=== PATIENT | female | born 1985 | race Caucasian/White ===

== ENCOUNTER 2017-06-16 16:40 | Emergency (ER) | payer BC ==
[2017-06-16] MEDS ORDERED: SODIUM CHLORIDE 0.9% 500 ML IV STA (16:54)
[2017-06-16 17:21] LABS: Basophils # (A) 0.1 k/uL (0-0.2); Basophils % (A) 0 %; Eosinophils # (A) 0.2 k/uL (0-0.7); Eosinophils % (A) 2 %; HCT 32.3 % (34.0-46.0); HDW 3.23; HGB 11.3 gm/dL (11.4-16.0); Large Platelets Flag Moderate; Luc # (Auto) 0.37; Luc % (Auto) 3; Lymphocytes # (A) 2.8 k/uL (1.0-4.8); Lymphocytes % (A) 21 %; MCH 29.2 pg (25.0-35.0); MCV 83.3 fL (80.0-100.0); Mean Platelet Volume 10.9; Monocytes # (A) 0.8 k/uL (0-1.0); Monocytes % (A) 6 %; Neutrophils # (A) 9.2 k/uL (1.3-7.7); Neutrophils % (A) 69 %; RBC 3.88 m/uL (3.80-5.40); RDW 14.1 % (11.5-15.5); WBC 13.4 k/uL (3.8-10.6); WBC (Perox) 13.92
[2017-06-16 17:28] LABS: ALT 41 U/L (9-52); AST 25 U/L (14-36); Alkaline Phosphatase 65 U/L (38-126); Amylase 59 U/L (30-110); Anion Gap 8 mmol/L; Blood Urea Nitrogen 13 mg/dL (7-17); Carbon Dioxide 21 mmol/L (22-30); Chloride 105 mmol/L (98-107); Glucose 82 mg/dL (74-99); Non-African American GFR(MDRD) >60 (>60 ml/min/1.73 sqM); Potassium 3.7 mmol/L (3.5-5.1); Sodium 134 mmol/L (137-145); Total Bilirubin 0.3 mg/dL (0.2-1.3); Total Protein 6.7 g/dL (6.3-8.2)
[2017-06-16 17:34] VITALS: RESP 18
--- NOTE | 2017-06-16 18:10 | US ---
EXAMINATION TYPE: US OB >= 14 wk fetus DATE OF EXAM: 06/16/2017 COMPARISON: None CLINICAL HISTORY: Pelvic Pain TECHNIQUE: Transabdominal (TA) GESTATIONAL AGE / DATING Physician Established: (19 weeks/2 days) EDC: 11/08/2017 Dates by LMP: (19 weeks/2 days) EDC: 11/08/2017 Dates by First Scan: No previous at this facility Dates by Current Scan: (19 weeks/4 days) EDC: 11/06/2017 SURVEY IUP: Single PLACENTA: Posterior PREVIA: No Previa LAURA: 18.7 cm Normal CERVICAL LENGTH (transabdominal: norm > 3.0cm): 3.8 cm BIOMETRY PRESENTATION: Breech LIE: Longitudinal BPD: 4.69 cm 20 weeks / 1 days HC: 17.0 cm 19 weeks / 5 days AC: 15.16 cm 20 weeks / 3 days FL: 2.9 cm 18 weeks / 6 days ESTIMATED WEIGHT IN GRAMS: 308.78 grams ESTIMATED WEIGHT IN LBS/OZS: 0 lbs. 11 oz. WEIGHT PERCENTAGE BASED ON ESTABLISHED DATES: 71.2% HC/AC: 1.12 Normal FL/AC: 19.11 Normal HEART RATE: 132 bpm RHYTHM: Normal Viable IUP, measurements congruent with dates. IMPRESSION: The ultrasound gestational age is 19 weeks 4 days. I see no complicating process.
--- NOTE | 2017-06-16 18:20 | ED ---
General Adult HPI - General Chief complaint: OB/Uterine Contractions Stated complaint: abd pain, Time Seen by Provider: 06/16/17 16:41 Source: patient Mode of arrival: ambulatory Limitations: no limitations - History of Present Illness Initial comments: 32-year-old female patient presents to emergency department today for complaints of lower abdominal pressure. Patient is 19 weeks , and states that the pain/pressure started today around 11 AM. Patient states that the pain is intermittent, but when it comes on it lasts for a while and feels intense. Patient states she has been urinating more frequently, however she denies any dysuria, or hematuria. She denies any vaginal bleeding or discharge. She states she has been getting dizzy occasionally. She states that he is having some ankle swelling and elevated blood pressures however her SOFTWARE SUPPORT ENGINEER is aware and is monitoring her for this. She denies any fever, chills, rash, headache, chest pain, shortness of breath, nausea, vomiting, constipation , or diarrhea. She states she has one sexual partner and is not concerned for STDs. Patient is . She did have a ultrasound last week which showed no or maternal abnormalities. - Related Data Home Medications Medication Instructions Recorded Confirmed Acetaminophen [Tylenol] 325 mg PO Q4H PRN 03/08/16 03/11/16 Biotin 10,000 mcg PO QAM 03/08/16 03/11/16 Omeprazole [PriLOSEC] 10 mg PO AC-BRKFST 03/08/16 03/11/16 Previous Rx's Medication Instructions Recorded Nitrofurantoin Monohyd/M-Cryst 100 mg PO Q12HR #14 cap 06/16/17 [Macrobid] Allergies Allergy/AdvReac Type Severity Reaction Status Date / Time cod fish Allergy Rash/Hives Uncoded 03/08/16 14:27 Review of Systems ROS Statement: Those systems with pertinent positive or pertinent negative responses have been documented in the HPI. ROS Other: All systems not noted in ROS Statement are negative. Past Medical History Past Medical History: GERD/Reflux Additional Past Medical History / Comment(s): GIB, stomach aches History of Any Multi-Drug Resistant Organisms: None Reported Past Surgical History: Appendectomy, Orthopedic Surgery Additional Past Surgical History / Comment(s): Sx: right simpson laser sx d/t torn ligament Past Anesthesia/Blood Transfusion Reactions: Postoperative Nausea & Vomiting ( PONV) Past Psychological History: Anxiety Smoking Status: Never smoker Past Alcohol Use History: None Reported Past Drug Use History: None Reported - Past Family History Mother Family Medical History: COPD Additional Family Medical History / Comment(s): emphysema, passed from Father Family Medical History: Chest Pain / Angina, Coronary Artery Disease (CAD), Deep Vein Thrombosis (DVT) Additional Family Medical History / Comment(s): DVT in legs General Exam Limitations: no limitations General appearance: alert, in no apparent distress ENT exam: Present: normal exam, normal oropharynx, mucous membranes moist Neck exam: Present: normal inspection. Absent: tenderness, meningismus, lymphadenopathy Respiratory exam: Present: normal lung sounds bilaterally. Absent: respiratory distress, wheezes, rales, rhonchi, stridor Cardiovascular Exam: Present: regular rate, normal rhythm, normal heart sounds. Absent: systolic murmur, diastolic murmur, rubs, gallop, clicks GI/Abdominal exam: Present: soft, tenderness (Tenderness over the suprapubic and central lower abdominal region.), normal bowel sounds, other (Gravid abdomen.). Absent: distended, guarding, rebound, rigid Extremities exam: Present: normal inspection, full ROM, normal capillary refill , other (+1 pitting edema noted to the bilateral ankles. Pedal pulses, and equal bilaterally. No erythema noted.). Absent: tenderness, pedal edema, joint swelling, calf tenderness Back exam: Present: normal inspection. Absent: CVA tenderness (R), CVA tenderness (L) Neurological exam: Present: alert, oriented X3, CN II-XII intact Psychiatric exam: Present: normal affect, normal mood Skin exam: Present: warm, dry, intact, normal color. Absent: rash Course Vital Signs 06/16/17 06/16/17 06/16/17 16:45 17:33 18:33 Temperature 98.1 F 98 F Pulse Rate 89 79 74 Respiratory 20 18 18 Rate Blood Pressure 153/79 158/78 110/67 O2 Sat by Pulse 98 98 98 Oximetry EKG Findings - EKG Comments: EKG Findings:: EKG obtained at 1707 shows normal sinus rhythm with a ventricular rate of 78, IA interval 1:30, QRS duration 82, QT 372, QTC 424. No evidence of ST elevation or depression. Medical Decision Making - Medical Decision Making 32-year-old female patient presented to emergency department today for complaints of lower abdominal pain and pressure. Urinalysis was performed as an outpatient and did show moderate bacteria, small leukocyte esterase, and mucus present. Labs were reviewed and did show white blood cell count of 13.4. ultrasound was performed and did show a single viable intrauterine measuring 19 weeks 4 days. heart rate was 132. No evidence of previa or abruption. Patient will be discharged home with instructions to monitor and record blood pressures. She'll be given a prescription for Macrobid for treatment of UTI, urine culture was sent. Patient instructed to follow up as soon as possible with her SOFTWARE SUPPORT ENGINEER for recheck. Instructed to follow -up with her primary care physician for recheck in 1-2 days. Instructed to return here immediately for any new, worsening, or concerning symptoms. - Lab Data Result diagrams: 06/16/17 17:05 06/16/17 17:05 Lab Results 06/16/17 06/16/17 Range/Units 17:05 17:05 WBC 13.4 H (3.8-10.6) k/uL RBC 3.88 (3.80-5.40) m/uL Hgb 11.3 L (11.4-16.0) gm/dL Hct 32.3 L (34.0-46.0) % MCV 83.3 (80.0-100.0) fL MCH 29.2 (25.0-35.0) pg MCHC 35.0 (31.0-37.0) g/dL RDW 14.1 (11.5-15.5) % Plt Count 178 (150-450) k/uL Neutrophils % 69 % Lymphocytes % 21 % Monocytes % 6 % Eosinophils % 2 % Basophils % 0 % Neutrophils # 9.2 H (1.3-7.7) k/uL Lymphocytes # 2.8 (1.0-4.8) k/uL Monocytes # 0.8 (0-1.0) k/uL Eosinophils # 0.2 (0-0.7) k/uL Basophils # 0.1 (0-0.2) k/uL Sodium 134 L (137-145) mmol/L Potassium 3.7 (3.5-5.1) mmol/L Chloride 105 (98-107) mmol/L Carbon Dioxide 21 L (22-30) mmol/L Anion Gap 8 mmol/L BUN 13 (7-17) mg/dL Creatinine 0.72 (0.52-1.04) mg/dL Est GFR (MDRD) Af Amer >60 (>60 ml/min/1.73 sqM) Est GFR (MDRD) Non-Af >60 (>60 ml/min/1.73 sqM) Glucose 82 (74-99) mg/dL Calcium 10.0 (8.4-10.2) mg/dL Total Bilirubin 0.3 (0.2-1.3) mg/dL AST 25 (14-36) U/L ALT 41 (9-52) U/L Alkaline Phosphatase 65 (38-126) U/L Total Protein 6.7 (6.3-8.2) g/dL Albumin 3.6 (3.5-5.0) g/dL Amylase 59 (30-110) U/L Lipase 135 (23-300) U/L - Radiology Data Radiology results: report reviewed, image reviewed ultrasound was performed and showed viable IUP, measurements congruent with dates. Impression by Dr. Corrales shows the ultrasound gestational age is 19 weeks 4 days. I see no compensating process. Disposition Clinical Impression: Abdominal pain during , Urinary tract infection Disposition: HOME SELF-CARE Condition: Good Instructions: Abdominal Pain in (ED), Urinary Tract Infection in (ED) Additional Instructions: Increase fluids. Take antibiotic prescription and full. Follow up with SOFTWARE SUPPORT ENGINEER for recheck as soon as possible. Return immediately for any new, worsening, or concerning symptoms. Prescriptions: Nitrofurantoin Monohyd/M-Cryst [Macrobid] 100 mg PO Q12HR #14 cap Referrals: Shyla Zhou DO [Primary Care Provider] - 1-2 days Time of Disposition: 18:20
[2017-06-16 18:34] VITALS: BP 110/67; PULSE 74; TEMP 98
== END 2017-06-16 18:33 | disposition home or self-care (01) ==
LOC: EC 16:40
DX: O23.42 Unspecified infection of urinary tract in pregnancy, second trimester (principal); O99.89 Other specified diseases and conditions complicating pregnancy, childbirth and the puerperium; R10.30 Lower abdominal pain, unspecified; O99.612 Diseases of the digestive system complicating pregnancy, second trimester; K21.9 Gastro-esophageal reflux disease without esophagitis; Z3A.19 19 weeks gestation of pregnancy; Z79.899 Other long term (current) drug therapy; Z91.013 Allergy to seafood
CPT/HCPCS: 36415; 76805; 80053; 82150; 83690; 85025; 93005; 99284

== ENCOUNTER → 2017-06-16 | Outpatient (CLI) | payer BC ==
[2017-06-16 16:01] LABS: Appearance,Urine Clear (Clear); Bacteria,Urine Moderate /hpf; Bilirubin,Urine Negative (Negative); Glucose,Urine (UA) Negative (Negative); Ketones,Urine Negative (Negative); Leukocyte Esterase,Urine Trace (Negative); Mucus,Urine Rare /hpf; Nitrite,Urine Negative (Negative); PH, Urine 6.5 (5.0-8.0); Particle Count 1979; Protein,Urine Negative (Negative); RBC,Urine 1 /hpf (0-5); Specific Gravity,Urine 1.006 (1.001-1.035); Squamous Epithelial Cell,Urine <1 /hpf (0-4); UA Billing (MACRO vs. MICRO) MICRO; Urobilinogen,Urine <2.0 mg/dL (<2.0); WBC,Urine 4 /hpf (0-5)
== END | disposition home or self-care (01) ==
LOC: LABMAIN 15:40
PROVIDERS: ATTEND Nurse Practitioner
DX: R10.30 Lower abdominal pain, unspecified (principal)
CPT/HCPCS: 81001; 87086

== ENCOUNTER 2017-07-02 22:20 | Outpatient (CLI) | payer BC ==
[2017-07-02 22:42] LABS: Appearance,Urine Clear (Clear); Bilirubin,Urine Negative (Negative); Glucose,Urine (UA) Negative (Negative); Ketones,Urine Negative (Negative); Leukocyte Esterase,Urine Negative (Negative); Nitrite,Urine Negative (Negative); Protein,Urine Negative (Negative); Specific Gravity,Urine 1.002 (1.001-1.035); UA Billing (MACRO vs. MICRO) CHEM; Urobilinogen,Urine <2.0 mg/dL (<2.0)
[2017-07-02 23:23] VITALS: BP 134/66; PULSE 82; RESP 16; TEMP 98.3
[2017-07-02 23:29] LABS: CH 28.9; CHCM 34.4; HDW 3.29; Large Platelets Flag Slight; MCH 29.2 pg (25.0-35.0); MCHC 34.5 g/dL (31.0-37.0); MCV 84.5 fL (80.0-100.0); Mean Platelet Volume 10.6; RBC 3.78 m/uL (3.80-5.40); RDW 14.3 % (11.5-15.5); WBC (Perox) 13.77
[2017-07-02 23:36] LABS: ALT 46 U/L (9-52); AST 25 U/L (14-36); Blood Urea Nitrogen 11 mg/dL (7-17); Non-African American GFR(MDRD) >60 (>60 ml/min/1.73 sqM); Uric Acid 4.7 mg/dL (3.7-7.4)
[2017-07-02 23:57] LABS: Add Differential Manual Differential
[2017-07-02 23:59] LABS: Large Platelets Present; Manual Review Performed; Nucleated Red Blood Cells 0 /100 WBC (0-0); Total Cells Counted 100
--- NOTE | 2017-08-27 12:17 | P.MSEPDOC ---
Presenting Problems - Arrival Data Date of Arrival on Unit: 07/02/17 Time of Arrival on Unit: 22:20 Mode of Transport: Ambulatory - Complaint OB-Reason for Admission/Chief Complaint: Elevated Blood Pressure Medical History - Information : 1 Para: 0 Term: 0 : 0 Abortions: Spontaneous or Elective: 0 Number of Living Children: 0 - Gestational Age Gestational Age by BONG (wks/days): 21 Weeks and 5 Days Review of Systems - Review of Systems Constitutional: No problems Breast: No problems ENT: No problems Cardiovascular: No problems Respiratory: No problems Gastrointestinal: No problems Genitourinary: No problems Musculoskeletal: No problems Neurological: No problems Skin: No problems Vital Signs - Temperature Temperature: 98.3 F Temperature Source: Oral - Pulse Right Brachial Pulse Rate: 82 Pulse Assessment Method: Automatic Cuff - Respirations Respiratory Rate: 16 Oxygen Delivery Method: Room Air - Blood Pressure Right Arm Blood Pressure: 134/66 Blood Pressure Mean: 88 Blood Pressure Source: Automatic Cuff Medical Screen Scoring (Pre) - Cervical Exam Dilation: Exam Deferred Effacement: Exam Deferred Membranes: Intact - Maternal Vital Signs Signs of Preeclampsia: Headache = 1 Maternal Respirations: N/A - Maternal Trauma Maternal Trauma: N/A - Total Score Total Score (Pre): 1 - Level of Risk Level of Risk: Low (0-5) Physician Notification (Pre) - Notification Comment Comment: heart tones dopplered at 135-145 in suprapubic region for 2 minutes Medical Screen Scoring (Post) - Cervical Exam Dilation: Exam Deferred - Uterine Contractions Frequency: N/A - Maternal Vital Signs Maternal Temperature: N/A Signs of Preeclampsia: N/A Maternal Respirations: N/A - Maternal Trauma Maternal Trauma: N/A - Total Score Total Score (Post): 0 Physician Notification (Post) - Physician Notified Physician Notified Date: 07/02/17 Physician Notified Time: 22:55 Physician/Practitioner Notified:: Dr Domingo New Order Received: Yes (discharge if preeclampsia labs reviewed within normal limits.) Disposition - Disposition OB Disposition: Discharge to home, Written follow up instructions reviewed Discharge Date: 07/03/17 Discharge Time: 00:30 I agree with the RN Medical Screening Exam: Yes Risk & Benefit of care provided described in d/c instruction: Yes Diagnosis: OTHER SPECIFIED COMPLICATIONS OF LABOR AND DELIVERY
== END 2017-07-03 00:30 | disposition home or self-care (01) ==
LOC: FBPOP 22:20
PROVIDERS: ATTEND Obstetrics & Gynecology Obstetrics
DX: O75.89 Other specified complications of labor and delivery (principal); Z3A.21 21 weeks gestation of pregnancy
CPT/HCPCS: 81003; 82565; 84450; 84460; 84520; 84550; 85025; 99215

== ENCOUNTER 2017-08-12 12:33 | Outpatient (CLI) | payer BC ==
[2017-08-12 13:18] VITALS: BP 152/85; PULSE 81; RESP 16; TEMP 98
--- NOTE | 2017-08-13 20:17 | P.MSEPDOC ---
Presenting Problems - Arrival Data Date of Arrival on Unit: 08/12/17 Time of Arrival on Unit: 12:30 Mode of Transport: Ambulatory - Complaint OB-Reason for Admission/Chief Complaint: Decreased Movement Comment: pt states decrease movement since last night Medical History - Information : 1 Para: 0 Term: 0 : 0 Abortions: Spontaneous or Elective: 0 Number of Living Children: 0 - Gestational Age Gestational Age by BONG (wks/days): 27 Weeks and 3 Days Review of Systems - Review of Systems Constitutional: No problems Breast: No problems ENT: No problems Cardiovascular: No problems Respiratory: No problems Gastrointestinal: No problems Genitourinary: No problems Musculoskeletal: No problems Neurological: No problems Skin: No problems Vital Signs - Temperature Temperature: 98.0 F Temperature Source: Oral - Pulse Right Brachial Pulse Rate: 81 - Respirations Respiratory Rate: 16 Oxygen Delivery Method: Room Air - Blood Pressure Right Arm Blood Pressure: 152/85 Blood Pressure Mean: 107 Blood Pressure Source: Automatic Cuff Medical Screen Scoring (Pre) - Uterine Contractions Frequency: N/A Duration: N/A Intensity: N/A - Maternal Vital Signs Maternal Temperature: N/A Maternal Blood Pressure: N/A Signs of Preeclampsia: N/A Maternal Respirations: N/A - Maternal Trauma Maternal Trauma: N/A - Assessment Baseline FHR: 130 Heart Rate - NICHD Category: Category I (Normal) = 0 NST: Reactive Position: N/A Station: N/A - Total Score Total Score (Pre): 0 - Level of Risk Level of Risk: Low (0-5) Physician Notification (Pre) - Physician Notified Physician Notified Date: 08/12/17 Physician Notified Time: 13:17 Physician/Practitioner Notifed:: Que Spoke With: Que New Order Received: Yes - Notification Comment Comment: pt may be discharged home Disposition - Disposition OB Disposition: Discharge to home Discharge Date: 08/12/17 Discharge Time: 13:18 I agree with the RN Medical Screening Exam: Yes Risk & Benefit of care provided described in d/c instruction: Yes Diagnosis: DECREASED MOVEMENTS, SECOND TRIMESTER, FETUS 1
== END 2017-08-12 13:29 | disposition home or self-care (01) ==
LOC: FBPOP 12:33
PROVIDERS: ATTEND Obstetrics & Gynecology
DX: O36.8120 Decreased fetal movements, second trimester, not applicable or unspecified (principal); Z3A.27 27 weeks gestation of pregnancy
CPT/HCPCS: 59025; 99213

== ENCOUNTER 2017-10-28 21:49 | Observation (INO) | payer BC ==
[2017-10-28 22:27] LABS: Amorphous Sediment,Urine Rare /hpf; Appearance,Urine Clear (Clear); Bacteria,Urine Few /hpf; Bilirubin,Urine Negative (Negative); Blood,Urine Negative (Negative); Color,Urine Yellow; Glucose,Urine (UA) Negative (Negative); Ketones,Urine Negative (Negative); Leukocyte Esterase,Urine Trace (Negative); Mucus,Urine Rare /hpf; Nitrite,Urine Negative (Negative); PH, Urine 6.5 (5.0-8.0); Protein,Urine Trace (Negative); RBC,Urine <1 /hpf (0-5); Specific Gravity,Urine 1.015 (1.001-1.035); Squamous Epithelial Cell,Urine 1 /hpf (0-4); Urobilinogen,Urine <2.0 mg/dL (<2.0); WBC,Urine 1 /hpf (0-5)
[2017-10-28 23:04] LABS: Basophils % (A) 0 %; Eosinophils # (A) 0.2 k/uL (0-0.7); Eosinophils % (A) 1 %; HCT 34.7 % (34.0-46.0); HGB 11.5 gm/dL (11.4-16.0); Lymphocytes # (A) 2.6 k/uL (1.0-4.8); Lymphocytes % (A) 20 %; MCH 28.3 pg (25.0-35.0); MCHC 33.3 g/dL (31.0-37.0); MCV 84.9 fL (80.0-100.0); Mean Platelet Volume 12.4; Monocytes # (A) 0.8 k/uL (0-1.0); Monocytes % (A) 6 %; Neutrophils # (A) 8.9 k/uL (1.3-7.7); Neutrophils % (A) 70 %; Platelet Count 144 k/uL (150-450); RBC 4.09 m/uL (3.80-5.40); RDW 14.4 % (11.5-15.5); WBC 12.8 k/uL (3.8-10.6)
[2017-10-28 23:09] LABS: ALT 44 U/L (9-52); AST 23 U/L (14-36); Blood Urea Nitrogen 14 mg/dL (7-17); Uric Acid 5.3 mg/dL (3.7-7.4)
[2017-10-28] MEDS ORDERED: ACETAMINOPHEN TAB 325 MG TAB PO PRN (23:29)
[2017-10-28 23:57] VITALS: BMI 35.4
[2017-10-29 08:39] LABS: Basophils % (A) 0 %; Eosinophils # (A) 0.3 k/uL (0-0.7); Eosinophils % (A) 2 %; HCT 34.9 % (34.0-46.0); HGB 11.3 gm/dL (11.4-16.0); Lymphocytes # (A) 2.6 k/uL (1.0-4.8); Lymphocytes % (A) 23 %; MCH 27.7 pg (25.0-35.0); MCHC 32.3 g/dL (31.0-37.0); MCV 85.6 fL (80.0-100.0); Mean Platelet Volume 12.2; Monocytes # (A) 0.7 k/uL (0-1.0); Monocytes % (A) 6 %; Neutrophils # (A) 7.4 k/uL (1.3-7.7); Neutrophils % (A) 66 %; Platelet Count 143 k/uL (150-450); RBC 4.08 m/uL (3.80-5.40); RDW 14.5 % (11.5-15.5); WBC 11.2 k/uL (3.8-10.6)
[2017-10-29 08:40] VITALS: BP 132/85; PULSE 93; RESP 16; TEMP 98.1
[2017-10-29 08:42] LABS: ALT 40 U/L (9-52); AST 22 U/L (14-36); Blood Urea Nitrogen 14 mg/dL (7-17); Uric Acid 5.3 mg/dL (3.7-7.4)
--- NOTE | 2017-10-29 10:31 | P.HPOB ---
History of Present Illness H&P Date: 10/29/17 Chief Complaint: 38+ weeks, elevated blood pressure The patient is a 32-year-old 1 para 0 admitted at 38+ weeks as established by last menstrual period and confirmed by seven-week ultrasound. She had been at work during the day and found her blood pressures to be elevated on a couple of different occasions. She had had a slightly elevated blood pressure in the office earlier this week. As result, she presented to labor and delivery where she did have some mildly elevated blood pressures initially which relatively normalized with rest. Laboratory workup was negative. Nevertheless, the decision was made to admit her for 23 hour observation and serial blood pressures as well as a 24-hour urine collection. Obstetrical history 1 para 0 with current statistics listed above. EDC of 11/08/2017 was established by last menstrual period and confirmed by seven-week ultrasound. Laboratory workup demonstrates a blood type of A- with a negative antibody screen. Rubella status is immune. All other laboratory workup was within normal limits. One hour Glucola was normal and group B strep status is negative. Gynecologic history is unremarkable with no history of any infections to include STDs. Review of Systems Review of systems is confined to history of present illness. Past Medical History Past Medical History: GERD/Reflux Additional Past Medical History / Comment(s): GIB, stomach aches History of Any Multi-Drug Resistant Organisms: None Reported Past Surgical History: Appendectomy, Orthopedic Surgery Additional Past Surgical History / Comment(s): Sx: right simpson laser sx d/t torn ligament Past Anesthesia/Blood Transfusion Reactions: Postoperative Nausea & Vomiting ( PONV) Past Psychological History: Anxiety Smoking Status: Never smoker Past Alcohol Use History: None Reported Past Drug Use History: None Reported - Past Family History Mother Family Medical History: COPD Additional Family Medical History / Comment(s): emphysema, passed from Father Family Medical History: Chest Pain / Angina, Coronary Artery Disease (CAD), Deep Vein Thrombosis (DVT) Additional Family Medical History / Comment(s): DVT in legs Medications and Allergies Home Medications Medication Instructions Recorded Confirmed Type Pnv,Calcium 72/Iron/Folic Acid 1 tab PO DAILY 07/02/17 10/28/17 History [ Plus Tablet] Omeprazole Magnesium [Prilosec OTC] 20 mg PO DIRECTED 10/28/17 10/28/17 History Allergies Allergy/AdvReac Type Severity Reaction Status Date / Time cod fish Allergy Rash/Hives Uncoded 10/28/17 22:08 Exam - Vital Signs Vital signs: Vital Signs Temp Pulse Resp BP Pulse Ox 10/29/17 08:00 98.1 F 93 16 132/85 97 10/29/17 04:55 97.3 F L 94 17 139/75 98 10/29/17 01:06 97.7 F 100 17 138/79 98 10/28/17 23:59 98.6 F 88 17 134/83 10/28/17 23:20 99.3 F 96 16 158/95 98 Intake and Output 10/28/17 10/29/17 10/29/17 22:59 06:59 14:59 Other: # Voids 3 Weight 90.718 kg 90.718 kg In all, this is a well-developed, well-nourished white female in no acute distress. Her heart has a regular rhythm and rate without murmur. Her lungs are clear to auscultation bilaterally in all ruiz. Her abdomen is gravid, nondistended, has normal active bowel sounds, is soft, nontender, and without any palpable masses aside from the uterine fundus. Her extremities are without any cyanosis, clubbing, or significant edema and are nontender to palpation bilaterally. Digital cervical examination demonstrates her cervix to be closed and thick. Results Result Diagrams: 10/29/17 07:36 10/29/17 07:36 Abnormal Lab Results - Last 24 Hours (Table) 10/28/17 10/28/17 10/29/17 Range/Units 22:00 22:37 07:36 WBC 12.8 H 11.2 H (3.8-10.6) k/uL Hgb 11.3 L (11.4-16.0) gm/dL Plt Count 144 L 143 L (150-450) k/uL Neutrophils # 8.9 H (1.3-7.7) k/uL Urine Protein Trace H (Negative) Ur Leukocyte Esterase Trace H (Negative) Amorphous Sediment Rare H (None) /hpf Urine Bacteria Few H (None) /hpf Urine Mucus Rare H (None) /hpf Assessment and Plan (1) PIH ( induced hypertension) Current Visit: Yes Status: Acute Code(s): O13.9 - GESTATIONAL HTN W/O SIGNIFICANT PROTEINURIA, UNSP TRIMESTER SNOMED Code(s): 44882372 Plan: Age and is admitted for serial blood pressure monitoring and collection of 24- hour urine for protein and creatinine. She has no other secondary signs of preeclampsia at this time and labs will be repeated in the morning. She will have an NST every shift and allowed a regular diet as well as bedrest with bathroom privileges.
--- NOTE | 2017-10-29 10:35 | P.DS ---
Providers Date of admission: 10/28/17 23:32 Expected date of discharge: 10/29/17 Attending physician: Clarence Grey Primary care physician: Stated None - Discharge Diagnosis(es) (1) PIH ( induced hypertension) Current Visit: Yes Status: Acute Hospital Course: The patient is a 32-year-old 1 para 0 admitted at 38+ weeks by good dating parameters. 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 Her initial blood pressures in triage were also elevated. Laboratory workup was entirely negative in triage. She was, nonetheless, admitted for serial blood pressure monitoring and to begin the collection of a 24-hour urine for protein and creatinine. Overnight, her blood pressures stayed within the normal range, approximately 130s over 80s. All signs were reassuring. The patient denied any symptoms of headache or scotomata. Reflexes were normal. Repeat labs done this morning were entirely within normal limits. As a result, she was deemed stable for discharge to continue to collect her 24-hour urine at home and will bring it to the lab tomorrow once collected. She was discharged home to remain off of work for the remainder of her and at relative bedrest. She was to continue to serially follow her blood pressures at home and report anything that remained elevated above 140-150/90-95. She otherwise was to follow-up in the office on Tuesday, 3 days from now, for repeat blood pressure check and reevaluation. She understood all of her instructions and will follow up as noted above. Discharge medications included only continue vitamins. Procedures: A 23 hour observation #2. Serial blood pressure monitoring #3. Serial labs and 24-hour urine collection Patient Condition at Discharge: Stable Plan - Discharge Summary New Discharge Prescriptions: No Action Pnv,Calcium 72/Iron/Folic Acid [ Plus Tablet] 1 tab PO DAILY Omeprazole Magnesium [Prilosec OTC] 20 mg PO DIRECTED Discharge Medication List Pnv,Calcium 72/Iron/Folic Acid [ Plus Tablet] 1 tab PO DAILY 07/02/17 [ History] Omeprazole Magnesium [Prilosec OTC] 20 mg PO DIRECTED 10/28/17 [History] Follow up Appointment(s)/Referral(s): Clarence Grey MD [STAFF PHYSICIAN] - 3 Days Discharge Disposition: HOME SELF-CARE
== END 2017-10-29 10:20 | disposition home or self-care (01) ==
LOC: FBPOP 21:49 → 4FBP 23:32
PROVIDERS: ADMIT Obstetrics & Gynecology; ATTEND Obstetrics & Gynecology
DX: O13.3 Gestational [pregnancy-induced] hypertension without significant proteinuria, third trimester (principal); Z3A.38 38 weeks gestation of pregnancy; O99.613 Diseases of the digestive system complicating pregnancy, third trimester; K21.9 Gastro-esophageal reflux disease without esophagitis; Z79.899 Other long term (current) drug therapy; Z82.49 Family history of ischemic heart disease and other diseases of the circulatory system; Z82.5 Family history of asthma and other chronic lower respiratory diseases; Z91.013 Allergy to seafood
CPT/HCPCS: 59025; 81001; 82565; 84450; 84460; 84520; 84550; 85025; 99215

== ENCOUNTER 2019-07-07 20:02 | Emergency (ER) | payer BC, MEDICAID ==
[2019-07-07 20:35] LABS: Appearance,Urine Clear (Clear); Bilirubin,Urine Negative (Negative); Blood,Urine Negative (Negative); Color,Urine Brown; Glucose,Urine (UA) Negative (Negative); Ketones,Urine Negative (Negative); Leukocyte Esterase,Urine Negative (Negative); Nitrite,Urine Negative (Negative); PH, Urine 6.5 (5.0-8.0); Protein,Urine Negative (Negative); Specific Gravity,Urine 1.001 (1.001-1.035); Urobilinogen,Urine <2.0 mg/dL (<2.0)
--- NOTE | 2019-07-07 20:54 | ED ---
Abdominal Pain HPI - General Chief Complaint: Abdominal Pain Stated Complaint: abdominal pain Time Seen by Provider: 07/07/19 20:53 Source: patient Mode of arrival: ambulatory Limitations: no limitations - History of Present Illness Initial Comments: Alma is a 34-year-old female presenting the emergency department today for evaluation of epigastric right upper quadrant abdominal pain. Patient reports the pain began yesterday and because progressively worsening. Pain is associated with nausea, decreased by mouth intake. Patient was concerned that it may be her gallbladder which prompted the emergency department for evaluation. Patient denies any previous gallbladder issues. - Related Data Home Medications Medication Instructions Recorded Confirmed No Known Home Medications 07/07/19 07/07/19 Allergies Allergy/AdvReac Type Severity Reaction Status Date / Time cod fish Allergy Rash/Hives Uncoded 11/01/17 19:36 Review of Systems ROS Statement: Those systems with pertinent positive or pertinent negative responses have been documented in the HPI. ROS Other: All systems not noted in ROS Statement are negative. Past Medical History Past Medical History: GERD/Reflux Additional Past Medical History / Comment(s): GIB, stomach aches History of Any Multi-Drug Resistant Organisms: None Reported Past Surgical History: Appendectomy, Section, Orthopedic Surgery Additional Past Surgical History / Comment(s): Sx: right wrist laser sx d/t torn ligament Past Anesthesia/Blood Transfusion Reactions: Postoperative Nausea & Vomiting (PONV) Past Psychological History: Anxiety Smoking Status: Never smoker Past Alcohol Use History: None Reported Past Drug Use History: None Reported - Past Family History Mother Family Medical History: COPD Additional Family Medical History / Comment(s): emphysema, passed from Father Family Medical History: Chest Pain / Angina, Coronary Artery Disease (CAD), Deep Vein Thrombosis (DVT) Additional Family Medical History / Comment(s): DVT in legs General Exam - General Exam Comments Initial Comments: Physical Exam GENERAL: Patient is well-developed and well-nourished. Patient is nontoxic and well- hydrated and is in no distress. HENT: Normocephalic, Atraumatic. EYES: PERRL, EOMI PULMONARY: Unlabored respirations. No audible rales rhonchi or wheezing was noted. CARDIOVASCULAR: There is a regular rate and rhythm without any murmurs gallops or rubs. ABDOMEN: Soft, normal bowel sounds. Tenderness to palpation right upper quadrant No epigastric tenderness SKIN: Skin is clear with no lesions or rashes and otherwise unremarkable. : Deferred NEUROLOGIC: Patient is alert and oriented x3. Moving all extremities spontaneously MUSCULOSKELETAL: Normal extremities with adequate strength and full range of motion. No lower extremity swelling or edema. No calf tenderness. PSYCHIATRIC: Normal psychiatric evaluation. Limitations: no limitations Course Vital Signs 07/07/19 07/07/19 07/07/19 20:11 22:14 23:15 Temperature 98.3 F Pulse Rate 83 91 87 Respiratory 20 17 18 Rate Blood Pressure 135/75 120/77 O2 Sat by Pulse 99 100 98 Oximetry 07/08/19 07/08/19 00:15 00:41 Temperature 97.9 F Pulse Rate 77 86 Respiratory 18 18 Rate Blood Pressure 122/68 112/79 O2 Sat by Pulse 98 98 Oximetry Medical Decision Making - Medical Decision Making She was seen and evaluated, history is obtained from the patient Medications were offered however patient declined stating that the pain is manageable she just wants to make sure it's nothing serious Labs and imaging including KUB were ordered. 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 Patient will return for any change in condition, worsening pain, nausea, vomiting or concern for dehydration. All questions pertaining to care were answered return parameters were discussed. We did discuss that though the pain is in the upper quadrant without a computed tomography scan we cannot rule out acute appendic itis, however patient would like to decline CT at this time. Again patient was encouraged to return for any change in symptoms a patient was discharged home in stable condition at this time. - Lab Data Result diagrams: 07/07/19 21:30 07/07/19 21:30 Lab Results 07/07/19 07/07/19 07/07/19 Range/Units 20:25 20:25 21:30 WBC 14.8 H (3.8-10.6) k/uL RBC 4.75 (3.80-5.40) m/uL Hgb 13.5 (11.4-16.0) gm/dL Hct 40.0 (34.0-46.0) % MCV 84.2 (80.0-100.0) fL MCH 28.4 (25.0-35.0) pg MCHC 33.7 (31.0-37.0) g/dL RDW 15.2 (11.5-15.5) % Plt Count 169 (150-450) k/uL Neutrophils % 75 % Lymphocytes % 17 % Monocytes % 5 % Eosinophils % 1 % Basophils % 1 % Neutrophils # 11.0 H (1.3-7.7) k/uL Lymphocytes # 2.5 (1.0-4.8) k/uL Monocytes # 0.7 (0-1.0) k/uL Eosinophils # 0.2 (0-0.7) k/uL Basophils # 0.1 (0-0.2) k/uL Manual Slide Review Performed Large Platelets Present Sodium (137-145) mmol/L Potassium (3.5-5.1) mmol/L Chloride (98-107) mmol/L Carbon Dioxide (22-30) mmol/L Anion Gap mmol/L BUN (7-17) mg/dL Creatinine (0.52-1.04) mg/dL Est GFR (CKD-EPI)AfAm (>60 ml/min/1.73 sqM) Est GFR (CKD-EPI)NonAf (>60 ml/min/1.73 sqM) Glucose (74-99) mg/dL Calcium (8.4-10.2) mg/dL Total Bilirubin (0.2-1.3) mg/dL AST (14-36) U/L ALT (9-52) U/L Alkaline Phosphatase (38-126) U/L Total Protein (6.3-8.2) g/dL Albumin (3.5-5.0) g/dL Lipase (23-300) U/L Urine Color Brown Urine Appearance Clear (Clear) Urine pH 6.5 (5.0-8.0) Ur Specific [place] 1.001 (1.001-1.035) Urine Protein Negative (Negative) Urine Glucose (UA) Negative (Negative) Urine Ketones Negative (Negative) Urine Blood Negative (Negative) Urine Nitrite Negative (Negative) Urine Bilirubin Negative (Negative) Urine Urobilinogen <2.0 (<2.0) mg/dL Ur Leukocyte Esterase Negative (Negative) Urine HCG, Qual Not Detected (Not Detectd) Hepatitis A IgM Ab Hep Bs Antigen (Non-Reactive) Hep B Core IgM Ab (Non-Reactive) Hep C IgG Ab (Non-Reactive) 07/07/19 07/07/19 07/08/19 Range/Units 21:30 21:30 00:34 WBC (3.8-10.6) k/uL RBC (3.80-5.40) m/uL Hgb (11.4-16.0) gm/dL Hct (34.0-46.0) % MCV (80.0-100.0) fL MCH (25.0-35.0) pg MCHC (31.0-37.0) g/dL RDW (11.5-15.5) % Plt Count (150-450) k/uL Neutrophils % % Lymphocytes % % Monocytes % % Eosinophils % % Basophils % % Neutrophils # (1.3-7.7) k/uL Lymphocytes # (1.0-4.8) k/uL Monocytes # (0-1.0) k/uL Eosinophils # (0-0.7) k/uL Basophils # (0-0.2) k/uL Manual Slide Review Large Platelets Sodium 139 (137-145) mmol/L Potassium 3.9 (3.5-5.1) mmol/L Chloride 104 (98-107) mmol/L Carbon Dioxide 27 (22-30) mmol/L Anion Gap 8 mmol/L BUN 12 (7-17) mg/dL Creatinine 0.70 (0.52-1.04) mg/dL Est GFR (CKD-EPI)AfAm >90 (>60 ml/min/1.73 sqM) Est GFR (CKD-EPI)NonAf >90 (>60 ml/min/1.73 sqM) Glucose 87 (74-99) mg/dL Calcium 9.6 (8.4-10.2) mg/dL Total Bilirubin 0.6 (0.2-1.3) mg/dL AST 40 H (14-36) U/L ALT 63 H (9-52) U/L Alkaline Phosphatase 88 (38-126) U/L Total Protein 7.2 (6.3-8.2) g/dL Albumin 4.0 (3.5-5.0) g/dL Lipase 86 (23-300) U/L Urine Color Urine Appearance (Clear) Urine pH (5.0-8.0) Ur Specific [place] (1.001-1.035) Urine Protein (Negative) Urine Glucose (UA) (Negative) Urine Ketones (Negative) Urine Blood (Negative) Urine Nitrite (Negative) Urine Bilirubin (Negative) Urine Urobilinogen (<2.0) mg/dL Ur Leukocyte Esterase (Negative) Urine HCG, Qual (Not Detectd) Hepatitis A IgM Ab NEGATIVE Hep Bs Antigen Non-Reactive (Non-Reactive) Hep B Core IgM Ab Non-Reactive (Non-Reactive) Hep C IgG Ab Non-Reactive (Non-Reactive) Disposition Clinical Impression: Abdominal pain Disposition: HOME SELF-CARE Condition: Stable Instructions (If sedation given, give patient instructions): Abdominal Pain (ED) Is patient prescribed a controlled substance at d/c from ED?: No Referrals: Shyla Zhou DO [Primary Care Provider] - 1-2 days
[2019-07-07] MEDS ORDERED: SODIUM CHLORIDE 0.9% 1,000 ML IV STA (20:57)
--- NOTE | 2019-07-07 21:31 | XR ---
EXAMINATION TYPE: XR KUB DATE OF EXAM: 07/07/2019 COMPARISON: 11/26/2013 HISTORY: Abdominal pain TECHNIQUE: 2 views upright FINDINGS: There is no sign of intestinal obstruction or pneumoperitoneum. There are no pathologic tavon cifications over the kidneys. Lung bases are clear. There is no sign of a mass. There are pelvic surg ical clips on the right side. IMPRESSION: Nonacute abdomen. No change.
[2019-07-07 21:58] LABS: Basophils # (A) 0.1 k/uL (0-0.2); Basophils % (A) 1 %; Eosinophils # (A) 0.2 k/uL (0-0.7); Eosinophils % (A) 1 %; HGB 13.5 gm/dL (11.4-16.0); Lymphocytes # (A) 2.5 k/uL (1.0-4.8); Lymphocytes % (A) 17 %; MCH 28.4 pg (25.0-35.0); MCHC 33.7 g/dL (31.0-37.0); MCV 84.2 fL (80.0-100.0); Mean Platelet Volume 11.6; Monocytes # (A) 0.7 k/uL (0-1.0); Monocytes % (A) 5 %; Neutrophils % (A) 75 %; Platelet Count 169 k/uL (150-450); RBC 4.75 m/uL (3.80-5.40); RDW 15.2 % (11.5-15.5); WBC 14.8 k/uL (3.8-10.6)
[2019-07-07 22:05] LABS: ALT 63 U/L (9-52); AST 40 U/L (14-36); African American GFR (CKD) >90 (>60 ml/min/1.73 sqM); Alkaline Phosphatase 88 U/L (38-126); Anion Gap 8 mmol/L; Blood Urea Nitrogen 12 mg/dL (7-17); Calcium 9.6 mg/dL (8.4-10.2); Carbon Dioxide 27 mmol/L (22-30); Chloride 104 mmol/L (98-107); Glucose 87 mg/dL (74-99); Potassium 3.9 mmol/L (3.5-5.1); Sodium 139 mmol/L (137-145); Total Bilirubin 0.6 mg/dL (0.2-1.3); Total Protein 7.2 g/dL (6.3-8.2)
[2019-07-07 22:34] LABS: Large Platelets Present
--- NOTE | 2019-07-07 23:47 | US ---
EXAM: US Abdomen Limited, Right Upper Quadrant CLINICAL HISTORY: Pain TECHNIQUE: Real-time ultrasound of the right upper quadrant with image documentation. COMPARISON: None. FINDINGS: Liver: Liver measures 15 cm. No intrahepatic bile duct dilation. Gallbladder: Gallbladder is normal Gallbladder wall measures 0.28 cm and is non-thickened Ultrasonographic Tovar sign is negative. Common bile duct: Common bile duct measures 0.3 cm No stones. No dilation. Pancreas: The pancreas is within normal limits. Right kidney: Right kidney measures 10.1 x 4 x 3.6 cm No stones. No hydronephrosis. IMPRESSION: No gallstones. The gallbladder is unremarkable. Remaining visualized viscera are unremarkable. Negative ultrasonic graphic Tovar's sign.
[2019-07-08 00:22] VITALS: RESP 18
[2019-07-08] MEDS ORDERED: ACET/COD 300 MG/30 MG STARTER PACK 6 TAB BTL PO STA (00:33)
[2019-07-08 00:44] VITALS: BP 112/79; PULSE 86; TEMP 97.9
== END 2019-07-08 00:41 | disposition home or self-care (01) ==
LOC: EC 20:02
DX: R10.13 Epigastric pain (principal); R10.11 Right upper quadrant pain; R11.0 Nausea; D72.829 Elevated white blood cell count, unspecified; R74.0 Nonspecific elevation of levels of transaminase and lactic acid dehydrogenase [LDH]; Z32.02 Encounter for pregnancy test, result negative; Z91.013 Allergy to seafood
CPT/HCPCS: 36415; 74018; 76705; 80053; 80074; 81003; 81025; 83690; 85025; 96360; 99284

== ENCOUNTER → 2020-05-29 | Outpatient (CLI) | payer BC ==
--- NOTE | 2020-05-29 14:58 | US ---
EXAMINATION TYPE: US venous doppler duplex LE LT DATE OF EXAM: 05/29/2020 2:37 PM COMPARISON: NONE CLINICAL HISTORY: M79.662, R22.42 PAIN AND SWELLING LOWER LIMB. Left leg and swelling x 3 days, patie nt 34 weeks . SIDE PERFORMED: Left TECHNIQUE: The lower extremity deep venous system is examined utilizing real time linear array sonog lawrence with graded compression, doppler sonography and color-flow sonography. VESSELS IMAGED: External Iliac Vein (EIV) Common Femoral Vein Deep Femoral Vein Greater Saphenous Vein * Femoral Vein Popliteal Vein Small Saphenous Vein * Proximal Calf Veins (* superficial vessels) There is normal flow, compressibility, vascular waveforms. Left Leg: Appears negative for DVT IMPRESSION: No evident deep venous thrombosis at or above the left knee
== END | disposition home or self-care (01) ==
LOC: RADUSWWP 14:07
PROVIDERS: ATTEND Obstetrics & Gynecology
DX: O99.89 Other specified diseases and conditions complicating pregnancy, childbirth and the puerperium (principal); M79.662 Pain in left lower leg; R22.42 Localized swelling, mass and lump, left lower limb; Z3A.34 34 weeks gestation of pregnancy

== ENCOUNTER → 2020-06-16 | Outpatient (CLI) | payer BC ==
[2020-06-16 13:27] LABS: Glucose,Urine (UA) Negative (Negative); Ketones,Urine Negative (Negative); Protein,Urine Negative (Negative)
[2020-06-16 13:34] LABS: Protein/Creatinine Ratio,Urine 0.935
[2020-06-16 14:47] VITALS: BP 137/81; PULSE 89; RESP 18; TEMP 98.7
--- NOTE | 2020-06-20 19:16 | P.MSEPDOC ---
Presenting Problems - Arrival Data Date of Arrival on Unit: 06/16/20 Time of Arrival on Unit: 12:38 Mode of Transport: Ambulatory - Complaint OB-Reason for Admission/Chief Complaint: Decreased Movement, Dizziness Comment: pt has a history of elevated blood pressure with last and is taking baby ASA once a day with this , pt states that she has been swollen. Denies other symptoms. Medical History - Information : 2 Para: 1 Term: 1 : 0 Abortions: Spontaneous or Elective: 0 Number of Living Children: 1 - Gestational Age Gestational Age by BONG (wks/days): 36 Weeks and 5 Days - History Complications: Breech, Prior Review of Systems - Review of Systems Constitutional: No problems Breast: No problems ENT: No problems Cardiovascular: No problems Respiratory: No problems Gastrointestinal: No problems Genitourinary: No problems Musculoskeletal: No problems Neurological: Dizziness Skin: Rash Comment: pt has light rash noted on left side of lower abdomen, has had dizziness on occassion this am Vital Signs - Temperature Temperature: 98.7 F Temperature Source: Oral - Pulse Pulse Oximetery Pulse Rate: 89 Pulse Assessment Method: Pulse Oximetry - Respirations Respiratory Rate: 18 Oxygen Delivery Method: Room Air O2 Sat by Pulse Oximetry: 98 - Blood Pressure Sitting Blood Pressure: 137/81 Blood Pressure Mean: 99 Blood Pressure Source: Automatic Cuff Medical Screen Scoring (Pre) - Cervical Exam Dilation: Exam Deferred Effacement: Exam Deferred Membranes: Intact - Uterine Contractions Frequency: > 5 minutes apart = 1 Duration: N/A Intensity: N/A - Maternal Vital Signs Maternal Temperature: N/A Maternal Blood Pressure: N/A Signs of Preeclampsia: N/A Maternal Respirations: N/A - Maternal Trauma Maternal Trauma: N/A - Assessment - Baby A Baseline FHR: 125 Heart Rate - NICHD Category: Category I (Normal) = 0 NST: Reactive - Total Score - Baby A Total Score - Baby A: 1 - Total Score - Baby B Total Score - Baby B: 1 - Total Score - Baby C Total Score - Baby C: 1 - Level of Risk - Baby A Level of Risk - Baby A: Low (0-5) - Level of Risk - Baby B Level of Risk - Baby B: Low (0-5) - Level of Risk - Baby C Level of Risk - Baby C: Low (0-5) - Pain Assessment Pain Scale Used: Numeric (1 - 10) Pain Intensity: 0 Physician Notification (Pre) - Physician Notified Physician Notified Date: 06/16/20 Physician Notified Time: 13:10 New Order Received: Yes - Notification Comment Comment: order for OB Urine and protein/creatinine ratio ordered Disposition - Disposition OB Disposition: Discharge to home, Written follow up instructions reviewed Discharge Date: 06/16/20 Discharge Time: 14:15 I agree with the RN Medical Screening Exam: Yes Risk & Benefit of care provided described in d/c instruction: Yes Diagnosis: RELATED CONDITIONS, UNSPECIFIED, THIRD TRIMESTER
== END | disposition home or self-care (01) ==
LOC: FBPOP 12:25
PROVIDERS: ATTEND Obstetrics & Gynecology
DX: O26.93 Pregnancy related conditions, unspecified, third trimester (principal); Z3A.36 36 weeks gestation of pregnancy
CPT/HCPCS: 59025; 81003; 82570; 84156; 99215

== ENCOUNTER → 2020-06-20 | Outpatient (CLI) | payer BC ==
[2020-06-20 12:32] LABS: HCT 33.8 % (34.0-46.0); HGB 10.8 gm/dL (11.4-16.0); Hypochromasia Slight; MCH 25.7 pg (25.0-35.0); MCV 80.1 fL (80.0-100.0); Mean Platelet Volume 16.2; RBC 4.22 m/uL (3.80-5.40); RDW 15.5 % (11.5-15.5); WBC 12.6 k/uL (3.8-10.6)
[2020-06-20 12:47] LABS: Creatinine 24 Hour,Urine 1168.2 mg/24hr (800.0-1800.0)
[2020-06-20 13:35] LABS: Platelet Count 139 k/uL (150-450)
[2020-06-20 18:55] LABS: Total Protein 24 Hour,Urine 384.3 mg/24Hr; Total Volume 24 Hour,Urine 3050 mL
== END | disposition home or self-care (01) ==
LOC: LABWHC1 10:32
PROVIDERS: ATTEND Obstetrics & Gynecology
DX: O13.9 Gestational [pregnancy-induced] hypertension without significant proteinuria, unspecified trimester (principal); O99.89 Other specified diseases and conditions complicating pregnancy, childbirth and the puerperium; R21 Rash and other nonspecific skin eruption; Z3A.00 Weeks of gestation of pregnancy not specified
CPT/HCPCS: 36415; 81050; 82239; 82575; 84156; 84450; 84460; 84550; 85027

== ENCOUNTER 2020-06-28 14:52 | Outpatient (CLI) | payer BC ==
[2020-06-28 17:04] LABS: Appearance,Urine Clear (Clear); Bilirubin,Urine Negative (Negative); Blood,Urine Negative (Negative); Color,Urine Yellow; Creatinine,Urine Random 71.2 mg/dL; Glucose,Urine (UA) Negative (Negative); Ketones,Urine Negative (Negative); Leukocyte Esterase,Urine Negative (Negative); Nitrite,Urine Negative (Negative); Protein,Urine Negative (Negative); Protein/Creatinine Ratio,Urine 0.197; Specific Gravity,Urine 1.011 (1.001-1.035); Urobilinogen,Urine <2.0 mg/dL (<2.0)
[2020-06-28 17:58] VITALS: BP 140/96; PULSE 96; RESP 16
--- NOTE | 2020-07-01 11:36 | P.MSEPDOC ---
Presenting Problems - Arrival Data Date of Arrival on Unit: 06/28/20 Time of Arrival on Unit: 14:52 Mode of Transport: Ambulatory - Complaint OB-Reason for Admission/Chief Complaint: Other Comment: pt arrived c/o her b/p being elevated prior and pt has been taking her b/p at home and its high. so pt came in to be evualted pt c/o mild h/a . reflexes plus 2 Medical History - Information : 2 Para: 1 Term: 1 : 0 Abortions: Spontaneous or Elective: 0 Number of Living Children: 1 - Gestational Age Gestational Age by BONG (wks/days): 38 Weeks and 3 Days - History Complications: Prior Review of Systems - Review of Systems Constitutional: No problems Breast: No problems ENT: No problems Cardiovascular: No problems Respiratory: No problems Gastrointestinal: No problems Genitourinary: No problems Musculoskeletal: No problems Neurological: No problems Skin: No problems Vital Signs - Pulse Right Brachial Pulse Rate: 96 Pulse Assessment Method: Automatic Cuff - Respirations Respiratory Rate: 16 Oxygen Delivery Method: Room Air O2 Sat by Pulse Oximetry: 99 - Blood Pressure Right Arm Blood Pressure: 140/96 Blood Pressure Mean: 110 Blood Pressure Source: Automatic Cuff Medical Screen Scoring (Pre) - Cervical Exam Dilation: 0 cm = 0 Effacement: Exam Deferred Membranes: Intact - Uterine Contractions Frequency: > 5 minutes apart = 1 Duration: N/A Intensity: N/A - Maternal Vital Signs Maternal Temperature: N/A Maternal Blood Pressure: Diastolic > 89 = 1 Signs of Preeclampsia: Headache = 1 Maternal Respirations: N/A - Maternal Trauma Maternal Trauma: N/A - Assessment - Baby A Baseline FHR: 120 Heart Rate - NICHD Category: Category I (Normal) = 0 NST: Reactive Position: N/A Station: N/A - Total Score - Baby A Total Score - Baby A: 3 - Total Score - Baby B Total Score - Baby B: 3 - Total Score - Baby C Total Score - Baby C: 3 - Level of Risk - Baby A Level of Risk - Baby A: Low (0-5) - Level of Risk - Baby B Level of Risk - Baby B: Low (0-5) - Level of Risk - Baby C Level of Risk - Baby C: Low (0-5) Physician Notification (Pre) - Physician Notified Physician Notified Date: 06/28/20 Physician Notified Time: 16:06 New Order Received: Yes - Notification Comment Comment: serial b/p taken 143/84, 141/79,130/74,120/71, 123/76, 125/70. urine sent to lab reflexes plus 2 cervix closed. pt to keep scheduled appointment with dr ordoñez on Tuesday Disposition - Disposition OB Disposition: Discharge to home Discharge Date: 06/28/20 Discharge Time: 17:26 I agree with the RN Medical Screening Exam: Yes Risk & Benefit of care provided described in d/c instruction: Yes Diagnosis: chronic htn in [facility]
== END 2020-06-28 17:42 | disposition home or self-care (01) ==
LOC: FBPOP 14:52
PROVIDERS: ATTEND Obstetrics & Gynecology
DX: O16.3 Unspecified maternal hypertension, third trimester (principal); Z3A.38 38 weeks gestation of pregnancy
CPT/HCPCS: 59025; 81003; 82570; 84156; 99215

== ENCOUNTER 2020-07-04 06:11 | Inpatient (IN) | payer BC ==
[2020-07-02 14:37] VITALS: BMI 40.6
[2020-07-04] MEDS ORDERED: CITRIC ACID-SODIUM CITRATE 15 ML CUP PO ONE (06:30)
[2020-07-04] MEDS: LACTATED RINGERS 1,000 ML IV SCH ×2 (06:57→11:11)
[2020-07-04 06:58] LABS: Basophils % (A) 0 %; Eosinophils # (A) 0.3 k/uL (0-0.7); Eosinophils % (A) 2 %; HCT 34.4 % (34.0-46.0); HGB 11.2 gm/dL (11.4-16.0); Hypochromasia Slight; Lymphocytes # (A) 3.2 k/uL (1.0-4.8); Lymphocytes % (A) 22 %; MCH 26.1 pg (25.0-35.0); MCHC 32.5 g/dL (31.0-37.0); MCV 80.3 fL (80.0-100.0); Mean Platelet Volume 15.1; Monocytes # (A) 0.9 k/uL (0-1.0); Monocytes % (A) 6 %; Neutrophils # (A) 9.7 k/uL (1.3-7.7); Neutrophils % (A) 67 %; Platelet Count 131 k/uL (150-450); RBC 4.28 m/uL (3.80-5.40); RDW 15.8 % (11.5-15.5); WBC 14.5 k/uL (3.8-10.6)
[2020-07-04] MEDS ORDERED: MORPHINE SULFATE (PF) 0.3 MG/0.3 ML SYR ONE (07:58)
[2020-07-04] MEDS ORDERED: KETOROLAC 15 MG/ML 1 ML VIAL ONE (07:58)
[2020-07-04] MEDS ORDERED: ONDANSETRON 4 MG/2 ML VIAL ONE (07:58)
[2020-07-04] MEDS ORDERED: OXYTOCIN 10 UNIT/ML 1 ML VIAL ONE (07:58)
[2020-07-04 08:28] LABS: Large Platelets Present
[2020-07-04] MEDS ORDERED: ZOLPIDEM 5 MG TAB PO PRN (09:07)
[2020-07-04] MEDS ORDERED: NALOXONE 0.4 MG/ML 1 ML VIAL IV PRN (09:07)
[2020-07-04] MEDS ORDERED: LANOLIN CREAM 5 GM TUBE TOPICAL PRN (09:07)
[2020-07-04] MEDS ORDERED: diphenhydrAMINE 50 MG CAP PO PRN (09:07)
[2020-07-04] MEDS ORDERED: HYDROcodone/APAP 7.5-325MG 1 EACH TAB PO PRN (09:07)
[2020-07-04] MEDS ORDERED: diphenhydrAMINE 50 MG/ML 1 ML VIAL IVP PRN ×2 (09:07)
[2020-07-04] MEDS ORDERED: HYDROcodone/APAP 5-325MG 1 EACH TAB PO PRN (09:07)
[2020-07-04] MEDS ORDERED: diphenhydrAMINE 25 MG CAP PO PRN (09:07)
[2020-07-04] MEDS ORDERED: METOCLOPRAMIDE 5 MG/ML 2 ML VIAL IVP PRN (09:07)
[2020-07-04] MEDS ORDERED: ONDANSETRON 4 MG/2 ML VIAL IVP PRN (09:07)
--- NOTE | 2020-07-04 09:13 | P.HPOB ---
History of Present Illness H&P Date: 07/04/20 Chief Complaint: 39-2/7 weeks, previous section, undesired fertility The patient is a 35-year-old 2 para 101 admitted at 39-2/7 weeks as established by last menstrual period and confirmed by seven-week ultrasound. she is admitted for repeat low transverse section with intraoperative bilateral tubal occlusion using Filshie clips. She understands the permanent nature of tubal ligation and has agreed to proceed and has declined vaginal trial of labor. Her has otherwise been relatively uncomplicated. She carries a history in her previous of induced hypertension but has had minimal problems of that nature during this . She was found with a large for gestational age fetus at 35 weeks measuring greater than 99th percentile. She is also known to be Rh- and received RhoGAM at 28 weeks. Group B strep status is negative. Obstetrical history: 2 para 1001 with 1 previous term section f or arrest of dilation and descent. Current statistics are listed in history present illness. EDC of 07/09/2020 was established by last menstrual period and confirmed by seven-week ultrasound. Laboratory workup demonstrates a blood type of A- with a negative antibody screen. Rubella status is immune. The remainder of laboratory workup was within normal limits. Early Glucola and second trimester Glucola were both normal. Group B strep status is negative. Gynecologic history: Unremarkable with no history of any infections to include STDs. Review of Systems Review of systems is confined to history of present illness. Past Medical History Past Medical History: GERD/Reflux Additional Past Medical History / Comment(s): GIB, History of Any Multi-Drug Resistant Organisms: None Reported Past Surgical History: Appendectomy, Section, Orthopedic Surgery Additional Past Surgical History / Comment(s): Sx: right wrist laser sx d/t torn ligament Past Anesthesia/Blood Transfusion Reactions: Postoperative Nausea & Vomiting (PONV) Past Psychological History: Anxiety Smoking Status: Never smoker Past Alcohol Use History: None Reported Past Drug Use History: None Reported - Past Family History Mother Family Medical History: COPD Additional Family Medical History / Comment(s): emphysema, passed from Father Family Medical History: Chest Pain / Angina, Coronary Artery Disease (CAD), Deep Vein Thrombosis (DVT) Additional Family Medical History / Comment(s): DVT in legs Medications and Allergies Home Medications Medication Instructions Recorded Confirmed Type Aspirin [Adult Low Dose Aspirin EC] 81 mg PO DAILY 06/16/20 07/04/20 History Omeprazole [PriLOSEC] 10 mg PO DAILY 06/16/20 07/04/20 History [id number] Acid 1 cap PO DAILY 06/16/20 07/04/20 History [-U Capsule (formulary)] Allergies Allergy/AdvReac Type Severity Reaction Status Date / Time cod fish Allergy Rash/Hives Uncoded 07/02/20 14:29 Exam Vital Signs Temp Pulse Resp BP Pulse Ox 07/04/20 06:47 96.9 F L 100 18 130/75 98 Intake and Output 07/03/20 07/04/20 07/04/20 22:59 06:59 14:59 Other: Weight 100.698 kg In general, this is a well-developed, well-nourished white female in no acute distress. Her heart has a regular rhythm and rate without murmur. Her lungs are clear to auscultation bilaterally in all ruiz. Her abdomen is gravid, nondistended, has normal active bowel sounds, soft, nontender, and without any palpable masses aside from uterine fundus. Her extremities are without any cyanosis, clubbing, or edema and are nontender to palpation bilaterally. Digital cervical examination is deferred. Results Result Diagrams: 07/04/20 06:30 Abnormal Lab Results - Last 24 Hours (Table) 07/04/20 Range/Units 06:30 WBC 14.5 H (3.8-10.6) k/uL Hgb 11.2 L (11.4-16.0) gm/dL RDW 15.8 H (11.5-15.5) % Plt Count 131 L (150-450) k/uL Neutrophils # 9.7 H (1.3-7.7) k/uL Assessment and Plan (1) Family planning Current Visit: Yes Status: Acute Code(s): Z30.09 - ENCOUNTER FOR OTH GENERAL CNSL AND ADVICE ON CONTRACEPTION SNOMED Code(s): 561584591 (2) Previous section Current Visit: Yes Status: Acute Code(s): Z98.891 - HISTORY OF UTERINE SCAR FROM PREVIOUS SURGERY SNOMED Code(s): 702967322 Plan: The patient is admitted for repeat low transverse section with intraoperative bilateral tubal occlusion with Filshie clips. The risks and complications of the procedure have been thoroughly discussed and she has understood and agreed to proceed. She does understand the permanent nature of tubal ligation as well as any other risks that go along with this.
[2020-07-04] MEDS ORDERED: OXYTOCIN 20 UNITS/1000 ML NS 1,000 ML IV SCH (09:15)
[2020-07-04] MEDS ORDERED: LACTATED RINGERS 1,000 ML IV SCH (09:15)
--- NOTE | 2020-07-04 09:18 | P.OP ---
Date of Procedure: 07/04/20 Preoperative Diagnosis: #1. 39-2/7 weeks, previous section #2. Undesired fertility #3. Large for gestational age fetus Postoperative Diagnosis: Same Procedure(s) Performed: #1. Repeat low transverse section #2. Intraoperative bilateral tubal occlusion with Filshie clips Anesthesia: spinal Surgeon: Clarence Grey Business Law Professor #1: Megan Huddleston Estimated Blood Loss (ml): 560 IV fluids (ml): 1,000 Urine output (ml): 200 Pathology: none sent Condition: stable Disposition: PACU Operative Findings: The patient was taken the operating room where she was delivered of a viable 10 lbs. 4 oz. baby boy with Apgars of 8 at 1 minute and 9 at 5 minutes. The placenta was delivered manually and intact with a grossly normal three-vessel cord. The uterus, tubes, and ovaries were normal to inspection other were some very small sub-serosal fibroids, all less than a half a centimeter in size. The tubes and ovaries were otherwise normal to inspection. There was lightly meconium-stained fluid at the time of rupture of membranes. Description of Procedure: The patient was prepped and draped in usual fashion after spinal anesthesia was administered by the anesthesiologist. A Pfannenstiel incision was made through pre-existing scar and extended into the abdominal cavity without difficulty. The bladder peritoneum was noted to be distal to the intended site of incision was left intact. A 2 cm incision was made in the transverse plane of the lower uterine segment to enter the uterus at which time meconium-stained fluid was noted. The incision was extended in both directions using the bandage scissors. The head was delivered up and through the incision where the nose and mouth were thoroughly suctioned. Remainder of the infant was delivered onto the field where the cord was doubly clamped, cut, and the passed for resuscitative measures with weight and Apgars as noted above. cord blood was collected. A segment of cord was doubly clamped, cut, and set aside should cord gases become necessary. The placenta was delivered manually and intact as noted above. The uterus was exteriorized and the interior cavity of the uterus swept of any remaining placental or membranous fragments. The margins of the incision were grasped with Delgado clamps and the incision closed in a single running locking stitch of 0 chromic catgut from margin to margin. Any small points of bleeding were made hemostatic with the Bovie. The posterior cul-de-sac was then suctioned with a guard. After again confirming the patient's desire for tubal occlusion, a Filshie clip was placed across the isthmic portion of each fallopian tube and firmly affixed. The uterus was then replaced within the abdominal cavity and the gutters swept of any remaining blood, fluid, or clot. The incision was reexamined and found to be hemostatic. The parietal peritoneum was loosely reapproximated and made hemostatic with the Bovie. The layer of muscles were examined and also made hemostatic with the Bovie. The fascia was closed with 2 running stitches of 0 Vicryl proceeding from lateral margins to the midpoint. The subcutaneous tissues were irrigated, made hemostatic with the Bovie, and reapproximated with a running stitch of 30 plain catgut. The skin was reapproximated with a running subcuticular stitch of 4-0 Vicryl followed by half-inch Steri-Strips placed with Mastisol. Estimated blood loss for the case was approximate 560 mL. There were no complications. All sponge, instrument, and needle counts were correct. The patient tolerated the procedure well and proceeded to the recovery room in stable condition. Both mother and infant are resting comfortably in recovery.
[2020-07-04] MEDS: KETOROLAC 15 MG/ML 1 ML VIAL IVP PRN ×2 (17:09→23:26)
[2020-07-04] MEDS ORDERED: Rhogam IMMUNE GLOBULIN 1,500 UNIT/1 ML IM ONE (17:12)
[2020-07-04] MEDS: SENNOSIDES-DOCUSATE SODIUM 1 EACH TAB PO SCH (22:03)
[2020-07-05] MEDS: LACTATED RINGERS 1,000 ML IV SCH ×2 (03:19→03:20)
[2020-07-05] MEDS: KETOROLAC 15 MG/ML 1 ML VIAL IVP PRN (04:32)
[2020-07-05 07:19] LABS: HCT 29.5 % (34.0-46.0); Hypochromasia Slight; MCH 25.8 pg (25.0-35.0); MCV 80.7 fL (80.0-100.0); Mean Platelet Volume 15.5; Platelet Count 109 k/uL (150-450); RBC 3.65 m/uL (3.80-5.40); RDW 15.8 % (11.5-15.5); WBC 12.6 k/uL (3.8-10.6)
[2020-07-05 07:22] LABS: HGB 9.4 gm/dL (11.4-16.0)
[2020-07-05 08:18] LABS: Eosinophils # (M) 0.63 k/uL (0-0.7); Lymphocytes # (M) 1.39 k/uL (1.0-4.8); Monocytes # (M) 0.38 k/uL (0-1.0); Neutrophils # (M) 10.21 k/uL (1.3-7.7); Neutrophils % (M) 81 %; Nucleated Red Blood Cells 0 /100 WBC (0-0); Total Cells Counted 100
[2020-07-05 08:19] LABS: Large Platelets Present
[2020-07-05] MEDS: SENNOSIDES-DOCUSATE SODIUM 1 EACH TAB PO SCH ×2 (08:59→20:15)
--- NOTE | 2020-07-05 10:17 | P.PN ---
Progress Note - Text Progress Note Date: 07/05/20 Anesthesia Postop day 1 Subjective: Status Post section with Duramorph. Patient seen and examined. Currently doing well without complaint. Nausea and vomiting for 2 hours after surgery which resolved. Mild pruritus that lasted overnight.. VAS 2 out of 10. . Denies fever. Gross lower extremity strength intact. . Without apparent anesthetic complications. Objective: Vital signs reviewed Heart: Regular Rate Lungs: Good chest excursion Abdomen: Appears nondistended Assessment: Status post with Duramorph postop day 1 Plan: Continue current care with your medical management. Anticipated change in pain needs today, patient understands.
[2020-07-05] MEDS: IBUPROFEN 600 MG TAB PO PRN ×3 (10:31→23:18)
--- NOTE | 2020-07-05 10:42 | P.PNOBGPC ---
Subjective - Subjective Patient reports: Reports appetite normal, Reports voiding normally, Reports pain well controlled, Reports ambulating normally : doing well, other (Infant is being followed for jaundice.) Objective - Vital Signs Latest vital signs: Vital Signs Temp Pulse Resp BP Pulse Ox 07/05/20 08:30 98.1 F 97 17 128/68 07/05/20 04:00 98.2 F 90 16 118/74 97 07/05/20 00:00 98.5 F 90 16 130/76 99 07/04/20 20:00 98.5 F 81 16 135/81 99 07/04/20 16:00 98.4 F 80 16 138/84 99 07/04/20 13:00 97.1 F L 63 16 137/81 98 07/04/20 10:59 75 16 136/65 98 Intake and Output 07/04/20 07/05/20 07/05/20 22:59 06:59 14:59 Intake Total 1000 Output Total 400 1400 Balance 600 -1400 Intake: IV 1000 Invasive Line 1 1000 Output: Urine 400 1400 - Exam Extremities: Present: normal Abdomen: Present: normal appearance, soft. Absent: distention, tenderness Incision: Present: normal, dry, intact Uterus: Present: normal, firm (The uterine fundus is tonic and minimally tender around the umbilicus.) - Labs Labs: Abnormal Lab Results - Last 24 Hours (Table) 07/05/20 Range/Units 06:10 WBC 12.6 H (3.8-10.6) k/uL RBC 3.65 L (3.80-5.40) m/uL Hgb 9.4 L D (11.4-16.0) gm/dL Hct 29.5 L (34.0-46.0) % RDW 15.8 H (11.5-15.5) % Plt Count 109 L (150-450) k/uL Neutrophils # (Manual) 10.21 H (1.3-7.7) k/uL Assessment and Plan (1) Family planning Current Visit: Yes Status: Acute Code(s): Z30.09 - ENCOUNTER FOR OTH GENERAL CNSL AND ADVICE ON CONTRACEPTION SNOMED Code(s): 970384137 (2) Previous section Current Visit: Yes Status: Acute Code(s): Z98.891 - HISTORY OF UTERINE SCAR FROM PREVIOUS SURGERY SNOMED Code(s): 126397707 (3) S/P section Current Visit: Yes Status: Acute Code(s): Z98.891 - HISTORY OF UTERINE SCAR FROM PREVIOUS SURGERY SNOMED Code(s): 702920024 Plan: Continue routine postoperative care. Have strongly encouraged the patient and we'll in the hallways routinely. I would anticipate possible discharge home tomorrow pending no patient complications nor any issues with the ongoing bilirubin concerns of her infant.
[2020-07-05] MEDS: SIMETHICONE 80 MG CHEWABLE PO PRN ×3 (14:47→20:15)
[2020-07-05 15:59] VITALS: PULSE 83
[2020-07-05] MEDS: ACETAMINOPHEN TAB 325 MG TAB PO PRN (20:15)
[2020-07-05 22:58] VITALS: RESP 16
[2020-07-06] MEDS: ACETAMINOPHEN TAB 325 MG TAB PO PRN ×2 (02:06→08:43)
[2020-07-06 03:11] VITALS: BP 146/81; TEMP 97.8
[2020-07-06] MEDS: IBUPROFEN 600 MG TAB PO PRN (05:14)
[2020-07-06] MEDS: SENNOSIDES-DOCUSATE SODIUM 1 EACH TAB PO SCH (08:43)
--- NOTE | 2020-07-06 10:29 | P.DS ---
Providers Date of admission: 07/04/20 06:11 Attending physician: Clarence Grey Primary care physician: Stated None - Discharge Diagnosis(es) (1) Family planning Current Visit: Yes Status: Acute (2) Previous section Current Visit: Yes Status: Acute (3) S/P section Current Visit: Yes Status: Acute Hospital Course: The patient is a 35-year-old 2 para 1001 admitted at 39-2/7 weeks by good dating parameters. She is admitted for repeat low transverse section with intraoperative bilateral tubal occlusion with Filshie clips having consented to both procedures in the office. Her has been uncomplicat ed though she was found to have a fetus growing at greater than 99th percentile at 35 weeks. She also is Rh- and received RhoGAM at 28 weeks. On labor and delivery, she was taken the operating room where she was delivered of a viable 10 lbs. 4 oz. baby boy with Apgars of 8 at 1 minute and 9 at 5 minutes. Her postoperative course was unremarkable with vital signs being stable and her temperature was afebrile throughout. She was deemed stable for discharge on and postoperative day #2. She was discharged home to follow-up in the office in 2 weeks for an incision check and 6 weeks routinely. Discharge instructions included calling for any significantly increased bleeding or foul- smelling lochia, significantly increased fever or abdominal pain, perineal complaints, breast complaints, incisional complaints, or anything else that concerned her. She was additionally instructed to have nothing in the vagina for at least 6 weeks time to include intercourse and to abstain from any heavy lifting over the same period of time. She was last instructed to do no driving until off all pain medications or 2 weeks' time, whichever came first. She understood her instructions and agrees to follow up as noted above. Discharge medications included swml-hra-kbrwvqv analgesic pain medications as well as continued vitamins as she has opted to breast-feed. She additionally w as provided a prescription for Tylenol 3, 1-2 by mouth every 6 hours when necessary pain, #12 dispensed with no refills. Maternal blood type is A- and cord blood was sent for evaluation for the necessity of RhoGAM prior to discharge. Maternal discharge hemoglobin and hematocrit were 9.4 and 29.5 respectively. As result, she was to use iron sulfate once daily for the next month to rebuild her hemoglobin. Procedures: #1. Repeat low transverse section #2. Intraoperative bilateral tubal occlusion with Filshie clips Patient Condition at Discharge: Stable Plan - Discharge Summary Discharge Rx Participant: Yes New Discharge Prescriptions: No Action Xgk-Dskn-Ueklo Acid [-U Capsule (formulary)] 1 cap PO DAILY Omeprazole [PriLOSEC] 10 mg PO DAILY Aspirin [Adult Low Dose Aspirin EC] 81 mg PO DAILY Discharge Medication List Aspirin [Adult Low Dose Aspirin EC] 81 mg PO DAILY 06/16/20 [History] Omeprazole [PriLOSEC] 10 mg PO DAILY 06/16/20 [History] Gsn-Kvhe-Vncla Acid [-U Capsule (formulary)] 1 cap PO DAILY 06/16/20 [History] Follow up Appointment(s)/Referral(s): Clarence Grey MD [STAFF PHYSICIAN] - 2 Weeks Discharge Disposition: HOME SELF-CARE
== END 2020-07-06 12:00 | disposition home or self-care (01) | DRG 785 ==
LOC: 4FBP 06:11
PROVIDERS: ADMIT Obstetrics & Gynecology; ATTEND Obstetrics & Gynecology
PROC: 10D00Z1 Extraction of Products of Conception, Low, Open Approach (ICD-10-PCS; principal; 2020-07-04 08:00)
PROC: 0UL70CZ Occlusion of Bilateral Fallopian Tubes with Extraluminal Device, Open Approach (ICD-10-PCS; principal; 2020-07-04 08:00)
DX: O34.211 Maternal care for low transverse scar from previous cesarean delivery (principal); D25.2 Subserosal leiomyoma of uterus; O36.63X0 Maternal care for excessive fetal growth, third trimester, not applicable or unspecified; O77.0 Labor and delivery complicated by meconium in amniotic fluid; O34.13 Maternal care for benign tumor of corpus uteri, third trimester; O99.72 Diseases of the skin and subcutaneous tissue complicating childbirth; L29.9 Pruritus, unspecified; O26.893 Other specified pregnancy related conditions, third trimester; Z67.11 Type A blood, Rh negative; O99.62 Diseases of the digestive system complicating childbirth; K21.9 Gastro-esophageal reflux disease without esophagitis; Z37.0 Single live birth; Z3A.39 39 weeks gestation of pregnancy; Z86.59 Personal history of other mental and behavioral disorders; Z79.82 Long term (current) use of aspirin; Z79.899 Other long term (current) drug therapy; Z90.49 Acquired absence of other specified parts of digestive tract; Z30.2 Encounter for sterilization; Z91.013 Allergy to seafood; Z82.5 Family history of asthma and other chronic lower respiratory diseases; Z82.49 Family history of ischemic heart disease and other diseases of the circulatory system
CPT/HCPCS: 85025; 85461; 86850; 86900; 86901

== ENCOUNTER → 2020-10-10 | Outpatient (CLI) | payer BC | END | disposition home or self-care (01) | LOC: LABWHC1 12:24 | PROVIDERS: ATTEND Surgery | DX: Z01.818 Encounter for other preprocedural examination (principal); Z20.828 Contact with and (suspected) exposure to other viral communicable diseases ==

== ENCOUNTER → 2020-10-17 | Day surgery (SDC) | payer BC ==
[2020-10-15 09:42] VITALS: BMI 37.1
[~2020-10-17] MED LIST: BUPIVACAINE (PF) 0.25% 30 ML VIAL SQ ONE; DEXAMETHASONE SOD PHOSPHATE 4 MG/ML 1 ML VIAL IV ONE; GLYCOPYRROLATE 0.2 MG/ML 2 ML VIAL ONE; HYDROmorphone 0.5 MG/0.5 ML SYRINGE IVP ONE; HYDROmorphone 0.5 MG/0.5 ML SYRINGE IVP PRN; KETOROLAC 15 MG/ML 1 ML VIAL ONE; LACTATED RINGERS 1,000 ML IV SCH; LIDOCAINE 0.5%-EPI 1:200,000 50 ML VIAL SQ ONE; LIDOCAINE 1% (10MG/ML) FOR IV START INTRADERMA ONE; LIDOCAINE 1% INJ 10MG/ML (20 ML MDV) ONE; MIDAZOLAM 2 MG/2 ML VIAL IV PRN; NEOSTIGMINE 1 MG/ML 10 ML VIAL ONE; ONDANSETRON 4 MG/2 ML VIAL IVP ONE; PROPOFOL 10 MG/ML 20 ML VIAL IV ONE; ROCURONIUM 10 MG/ML (10 ML VIAL) IV ONE; SCOPOLAMINE 1.5MG/72HR PATCH TRANSDERM ONE; SUCCINYLCHOLINE CHLORIDE 100 MG/5 ML SYR IV ONE; fentaNYL (PF) 50 MCG/ML 2 ML AMP ONE
--- NOTE | 2020-10-17 13:59 | P.OP ---
Date of Procedure: 10/17/20 Preoperative Diagnosis: Umbilical hernia Postoperative Diagnosis: Umbilical hernia Procedure(s) Performed: Umbilical herniorrhaphy with mesh Anesthesia: FAMILIA Surgeon: Sabine Anthony Estimated Blood Loss (ml): 5 Pathology: none sent Condition: stable Disposition: PACU Description of Procedure: The patient's taken the operative suite where she is prepped and draped in the usual sterile manner under a general endotracheal anesthetic. An infraumbilical incision was made. The hernia sac is dissected free from the skin and subcutaneous tissues along with the umbilicus. The fascial edges are then identified and freshened. The preperitoneal space is bluntly and sharply developed. Once adequate space is developed a small round mesh was placed in the urine deployed. He gave good under coverage. It was sutured to the fascia using 0 Vicryl. The skin of the umbilicus was tacked down to the fascia using 3-0 Vicryl. The skin was closed with 4-0 Vicryl in a subcuticular manner. Steri-Strips and dressings were applied. She tolerated the procedure without difficulty and was taken to recovery room in satisfactory condition. According to or personnel, WERE correct. Plan - Discharge Summary Discharge Rx Participant: No New Discharge Prescriptions: New HYDROcodone/APAP 5-325MG [[place] 5-325] 1 - 2 tab PO Q4H PRN #30 tab PRN Reason: Pain No Action Omeprazole [PriLOSEC] 40 mg PO DAILY Pnv No.95/Ferrous Fum/Folic AC [ Multivitamin Tablet] 1 each PO DAILY Discharge Medication List Omeprazole [PriLOSEC] 40 mg PO DAILY 10/15/20 [History] Pnv No.95/Ferrous Fum/Folic AC [ Multivitamin Tablet] 1 each PO DAILY 10/15/20 [History] HYDROcodone/APAP 5-325MG [[place] 5-325] 1 - 2 tab PO Q4H PRN #30 tab 10/17/20 [Rx] Follow up Appointment(s)/Referral(s): Sabine Anthony DO [Doctor of Osteopathic Medicine] - 2 Weeks Activity/Diet/Wound Care/Special Instructions: Ice to the incision for 24-48 hours. Leave the current dressing on until Tuesday then it may be removed and you may shower. Place a light dressing over the incision daily. No tub baths for 1 week. Take the Steri-Strips ( little tapes) office in 1 week. No lifting more than a gallon of milk. See Dr. Anthony in the office in 2 weeks. Call if questions or concerns Discharge Disposition: HOME SELF-CARE
[2020-10-17 14:00] VITALS: TEMP 97
[2020-10-17 15:04] VITALS: BP 137/87; PULSE 72; RESP 17
== END | disposition home or self-care (01) ==
LOC: OR 11:56
PROVIDERS: ATTEND Surgery
DX: K42.9 Umbilical hernia without obstruction or gangrene (principal); K21.9 Gastro-esophageal reflux disease without esophagitis; Z79.899 Other long term (current) drug therapy; Z98.890 Other specified postprocedural states; Z90.49 Acquired absence of other specified parts of digestive tract; Z82.5 Family history of asthma and other chronic lower respiratory diseases; Z82.49 Family history of ischemic heart disease and other diseases of the circulatory system
CPT/HCPCS: 81025; 49585; C1781; J1100; J2710; J0690; J2405; J2001; J3010; J1885; J0330; J2704; J1170

== ENCOUNTER → 2022-06-09 | Outpatient (CLI) | payer BC ==
--- NOTE | 2022-06-11 15:50 | MM ---
Reason for Exam: Screening (asymptomatic). Baseline mammogram. Patient History: Menarche at age 14. First Full-Term at age 33. Late child-bearing (after 30). Patient has history of breast feeding. Last menstrual period: 05/23/2022 Risk Values: Radha 5 year model risk: 0.5%. NCI Lifetime model risk: 12.6%. Prior Study Comparison: Patient's first Mammogram. No prior studies available for comparison. Tissue Density: There are scattered fibroglandular densities. Findings: Analyzed By CAD. No significant mass, suspicious group of microcalcification, or other discrete abnormality is seen. Overall Assessment: Negative, BI-RAD 1 Management: Screening Mammogram of both breasts at age 40. 1. Patient should continue monthly self breast exams. 2. A clinical breast exam by your physician is recommended on an annual basis. 3. This exam should not preclude additional follow-up of suspicious palpable abnormalities. Electronically signed and approved by: Pete Ferreira M.D. Radiologist
== END | disposition home or self-care (01) ==
LOC: RADMAMWWP 15:55
PROVIDERS: ATTEND Obstetrics & Gynecology
DX: Z12.31 Encounter for screening mammogram for malignant neoplasm of breast (principal)
CPT/HCPCS: 77063; 77067

== ENCOUNTER 2025-01-17 07:51 | Emergency (ER) | payer BC ==
--- NOTE | 2025-01-17 08:17 | ED ---
General Adult HPI - General Chief complaint: Syncope Stated complaint: Syncope-Head injury Time Seen by Provider: 01/17/25 07:53 Source: patient, RN notes reviewed Mode of arrival: ambulatory Limitations: no limitations - History of Present Illness Initial comments: 39-year-old female presents emergency department with chief complaint of syncopal episode. Patient states she To do her normal routine, workout states that she was getting some coffee when she started ringing her ears states that she became very flushed, hot feeling and woke up around coffee over. 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 Patient states she has left-sided headach e but prior to that she already had a headache that was not alleviating. Patient denies any neck pain she states has mild left discomfort left hip discomfort but is able to full range of motion complaint. Patient denies any paresthesias. Denies any focal weakness no chest pain shortness of breath - Related Data Home Medications Medication Instructions Recorded Confirmed Omeprazole [PriLOSEC] 40 mg PO DAILY 10/15/20 10/15/20 Pnv No.95/Ferrous Fum/Folic AC 1 each PO DAILY 10/15/20 10/15/20 [ Multivitamin Tablet] Previous Rx's Medication Instructions Recorded HYDROcodone/APAP 5-325MG [[place] 1 - 2 tab PO Q4H PRN #30 tab 10/17/20 5-325] Review of Systems ROS Statement: Those systems with pertinent positive or pertinent negative responses have been documented in the HPI. ROS Other: All systems not noted in ROS Statement are negative. Past Medical History Past Medical History: GERD/Reflux Additional Past Medical History / Comment(s): GIB, stomach aches History of Any Multi-Drug Resistant Organisms: None Reported Past Surgical History: Section, Hernia Repair Additional Past Surgical History / Comment(s): Sx: right wrist laser sx d/t torn ligament Past Anesthesia/Blood Transfusion Reactions: Postoperative Nausea & Vomiting (PONV) Past Psychological History: Anxiety Smoking Status: Never smoker Past Alcohol Use History: None Reported Past Drug Use History: None Reported - Past Family History Mother Family Medical History: COPD Additional Family Medical History / Comment(s): emphysema, passed from Father Family Medical History: Chest Pain / Angina, Coronary Artery Disease (CAD), Deep Vein Thrombosis (DVT) Additional Family Medical History / Comment(s): DVT in legs General Exam Limitations: no limitations General appearance: alert, in no apparent distress Head exam: Present: atraumatic, normocephalic, normal inspection Eye exam: Present: normal appearance, PERRL, EOMI. Absent: scleral icterus, conjunctival injection, periorbital swelling ENT exam: Present: normal exam, normal oropharynx, mucous membranes moist Neck exam: Present: normal inspection, full ROM. Absent: tenderness, meningismus, lymphadenopathy Respiratory exam: Present: normal lung sounds bilaterally. Absent: respiratory distress, wheezes, rales, rhonchi, stridor Cardiovascular Exam: Present: regular rate, normal rhythm, normal heart sounds. Absent: systolic murmur, diastolic murmur, rubs, gallop, clicks GI/Abdominal exam: Present: soft, normal bowel sounds. Absent: distended, tenderness, guarding, rebound, rigid Neurological exam: Present: alert, oriented X3, CN II-XII intact, reflexes normal. Absent: motor sensory deficit Skin exam: Present: warm, dry, intact, normal color. Absent: rash Course Vital Signs 01/17/25 01/17/25 01/17/25 07:54 08:11 08:13 Temperature 98.3 F Pulse Rate 82 Pulse Rate [ 78 Sitting Pulse Oximetery] Pulse Rate [ Standing Pulse Oximetery] Pulse Rate [ 66 Supine Pulse Oximetery] Respiratory 18 16 18 Rate Blood Pressure 146/95 Blood Pressure 136/89 [Right Arm Sitting] Blood Pressure [Right Arm Standing] Blood Pressure 144/82 [Right Arm Supine] O2 Sat by Pulse 99 98 98 Oximetry 01/17/25 08:15 Temperature Pulse Rate Pulse Rate [ Sitting Pulse Oximetery] Pulse Rate [ 63 Standing Pulse Oximetery] Pulse Rate [ Supine Pulse Oximetery] Respiratory 17 Rate Blood Pressure Blood Pressure [Right Arm Sitting] Blood Pressure 139/88 [Right Arm Standing] Blood Pressure [Right Arm Supine] O2 Sat by Pulse 98 Oximetry EKG Findings - EKG Comments: EKG Findings:: EKG performed 8: 22 sinus rhythm rate of 61 UT 169 QRS 93 QT/QTc 401/403 - EKG Results: EKG: interpreted by RINA Medical Decision Making - Medical Decision Making Was pt. sent in by a medical professional or institution (, PA, TAX STAFF ACCOUNTANT, urgent care, hospital, or intermediate...) When possible be specific @ -No Did you speak to anyone other than the patient for history (EMS, parent, family, police, friend...)? What history was obtained from this source @ -No Did you review nursing and triage notes (agree or disagree)? Why? @ -I reviewed and agree with nursing and triage notes Were old charts reviewed (outside hosp., previous admission, EMS record, old EKG, old radiological studies, urgent care reports/EKG's, intermediate records)? Report findings @ -No old charts were reviewed Differential Diagnosis (chest pain, altered mental status, abdominal pain women, abdominal pain men, vaginal bleeding, weakness, fever, dyspnea, syncope, headache, dizziness, GI bleed, back pain, seizure, CVA, palpatations, mental health, musculoskeletal)? @ -[Differential Syncope: Valvular disease, hypertrophic cardiomyopathy, pulmonary embolism, tamponade, tachycardia, bradycardia, PA, hypovolemia, hemorrhage, dissection, anemia, intracranial hemorrhage, seizure, hypoglycemia, carbon monoxide poisoning, this is not meant to be an all-inclusive list. EKG interpreted by me (3pts min.). @ -As above X-rays interpreted by me (1pt min.). @ -None done CT interpreted by me (1pt min.). @ -CT brain showing no acute intracranial hemorrhage, mass effect no acute process U/S interpreted by me (1pt. min.). @ -None done What testing was considered but not performed or refused? (CT, X-rays, U/S, labs)? Why? @ -None What meds were considered but not given or refused? Why? @ -None Did you discuss the management of the patient with other professionals (professionals i.e. , PA, TAX STAFF ACCOUNTANT, lab, RT, psych nurse, social human services assistants, footwear sales representative, teacher, special forces officer, ed case manager)? Give summary @ -No Was smoking cessation discussed for >3mins.? @ -No Was critical care preformed (if so, how long)? @ -No Were there social determinants of health that impacted care today? How? (Homelessness, low income, unemployed, alcoholism, drug addiction, transportation, low edu. Level, literacy, decrease access to med. care, senior living, rehab)? @ -No Was there de-escalation of care discussed even if they declined (Discuss DNR or withdrawal of care, Hospice)? DNR status @ -No What co-morbidities impacted this encounter? (DM, HTN, Smoking, COPD, CAD, Cancer, CVA, ARF, Chemo, Hep., AIDS, mental health diagnosis, sleep apnea, morbid obesity)? @ -None Was patient admitted / discharged? Hospital course, mention meds given and route, prescriptions, significant lab abnormalities, going to OR and other pertinent info. @ -Charge patient presented for syncopal episode patient had severe headache yesterday and worsened today after head injury. Patient did have syncopal episode and severe mechanism injury requiring CT of her brain which was negative. Patient will be discharged in stable condition Ortho's were negative. Undiagnosed new problem with uncertain prognosis? @ -No Drug Therapy requiring intensive monitoring for toxicity (Heparin, Nitro, Insulin, Cardizem)? @ -No Were any procedures done? @ -No Diagnosis/symptom? @ -Syncope Acute, or Chronic, or Acute on Chronic? @ -Acute Uncomplicated (without systemic symptoms) or Complicated (systemic symptoms)? @ -Complicated Side effects of treatment? @ -No Exacerbation, Progression, or Severe Exacerbation? @ -No Poses a threat to life or bodily function? How? (Chest pain, USA, PA, pneumonia, PE, COPD, DKA, ARF, appy, cholecystitis, CVA, Diverticulitis, Homicidal, Suicidal, threat to staff... and all critical care pts) @ -No - Lab Data Result diagrams: 01/17/25 08:34 01/17/25 08:34 Lab Results 01/17/25 01/17/25 Range/Units 08:34 08:34 WBC 6.6 (3.8-10.6) k/uL RBC 4.68 (3.80-5.40) m/uL Hgb 13.9 (11.4-16.0) gm/dL Hct 41.1 (34.0-46.0) % MCV 87.8 (80.0-100.0) fL MCH 29.6 (25.0-35.0) pg MCHC 33.7 (31.0-37.0) g/dL RDW 12.2 (11.5-15.5) % Plt Count 149 L (150-450) k/uL MPV 12.3 Sodium 139 (137-145) mmol/L Potassium 4.2 (3.5-5.1) mmol/L Chloride 106 (98-107) mmol/L Carbon Dioxide 26 (22-30) mmol/L Anion Gap 7 mmol/L BUN 20 H (7-17) mg/dL Creatinine 0.73 (0.52-1.04) mg/dL Est GFR (CKD-EPI)AfAm >90 (>60 ml/min/1.73 sqM) Est GFR (CKD-EPI)NonAf >90 (>60 ml/min/1.73 sqM) Glucose 97 (74-99) mg/dL Calcium 9.0 (8.4-10.2) mg/dL Magnesium 2.0 (1.6-2.3) mg/dL Total Bilirubin 0.7 (0.2-1.3) mg/dL AST 21 (14-36) U/L ALT 22 (4-34) U/L Alkaline Phosphatase 46 (38-126) U/L Total Protein 7.0 (6.3-8.2) g/dL Albumin 4.2 (3.5-5.0) g/dL Disposition Clinical Impression: Syncope Disposition: HOME SELF-CARE Condition: Stable Instructions (If sedation given, give patient instructions): Syncope (ED) Additional Instructions: Please return to the Emergency Department if symptoms worsen or any other concerns. Is patient prescribed a controlled substance at d/c from ED?: No Referrals: Eder Dennison MD [Primary Care Provider] - 1-2 days Time of Disposition: 09:49
[2025-01-17] MEDS: SODIUM CHLORIDE 0.9% 500 ML 500 ML IV STA (08:40)
[2025-01-17] MEDS: SODIUM CHLORIDE 0.9% 1,000 ML IV STA (08:40)
[2025-01-17 08:59] LABS: ALT 22 U/L (4-34); AST 21 U/L (14-36); African American GFR (CKD) >90 (>60 ml/min/1.73 sqM); Albumin 4.2 g/dL (3.5-5.0); Alkaline Phosphatase 46 U/L (38-126); Anion Gap 7 mmol/L; Blood Urea Nitrogen 20 mg/dL (7-17); Carbon Dioxide 26 mmol/L (22-30); Chloride 106 mmol/L (98-107); Glucose 97 mg/dL (74-99); Non-African American GFR(CKD) >90 (>60 ml/min/1.73 sqM); Potassium 4.2 mmol/L (3.5-5.1); Sodium 139 mmol/L (137-145); Total Bilirubin 0.7 mg/dL (0.2-1.3)
[2025-01-17 09:03] LABS: Basophils % (A) 1 %; Eosinophils # (A) 0.1 k/uL (0-0.7); Eosinophils % (A) 2 %; HCT 41.1 % (34.0-46.0); HGB 13.9 gm/dL (11.4-16.0); Lymphocytes # (A) 1.4 k/uL (1.0-4.8); Lymphocytes % (A) 22 %; MCH 29.6 pg (25.0-35.0); MCHC 33.7 g/dL (31.0-37.0); MCV 87.8 fL (80.0-100.0); Mean Platelet Volume 12.3; Monocytes # (A) 0.4 k/uL (0-1.0); Monocytes % (A) 5 %; Neutrophils # (A) 4.5 k/uL (1.3-7.7); Neutrophils % (A) 68 %; Platelet Count 149 k/uL (150-450); RBC 4.68 m/uL (3.80-5.40); RDW 12.2 % (11.5-15.5); WBC 6.6 k/uL (3.8-10.6)
--- NOTE | 2025-01-17 09:29 | CT ---
EXAMINATION TYPE: CT brain wo con DATE OF EXAM: 01/17/2025 9:24 AM COMPARISON: 11/24/2010. CLINICAL INDICATION: Female, 39 years old with history of TOLBERT, syncope, Syncope with head injury TECHNIQUE: Brain: Axial CT images of the brain were obtained with coronal and sagittal reformats created and rev iewed. Contrast used: None. Oral contrast used: None. CT DLP: 1098.1 mGycm, Automated exposure control for dose reduction was used. FINDINGS: Brain: Extra-axial spaces: No abnormal extra-axial fluid collections. Ventricular system: Within normal limits Cerebral parenchyma: No acute intraparenchymal hemorrhage or mass effect. The hopkins-white junction is well differentiated. Cerebellum: Unremarkable. Mass effect: No evidence of midline shift. Intracranial vasculature: unremarkable Soft tissues: Normal. Calvarium/osseous structures: No depressed skull fracture. Paranasal sinuses and mastoid air cells: Mild scattered paranasal sinus disease. Visualized orbits: Orbital contents are intact. IMPRESSION: No acute intracranial process. [facility], , 01/17/2025 9:27 AM
[2025-01-17] MEDS: ACETAMINOPHEN TAB 325 MG TAB PO STA (09:40)
[2025-01-17 10:10] LABS: Large Platelets Present
[2025-01-17 10:17] VITALS: BP 157/89; PULSE 77; RESP 18; TEMP 98.2
== END 2025-01-17 10:10 | disposition home or self-care (01) ==
LOC: EC 07:51
DX: R55 Syncope and collapse (principal)
CPT/HCPCS: 36415; 70450; 80053; 83735; 85025; 93005; 96360; 99284

== ENCOUNTER → 2025-01-25 | Outpatient (CLI) | payer BC ==
--- NOTE | 2025-01-25 08:22 | MM ---
Reason for Exam: Screening (asymptomatic). Last mammogram was performed 2 year(s) and 7 month(s) ago. Patient History: Menarche at age 14. First Full-Term at age 33. Late child-bearing (after 30). Premenopausal. Patient has history of breast feeding. Risk Values: Radha 5 year model risk: 0.6%. NCI Lifetime model risk: 12.5%. Prior Study Comparison: 06/09/2022 Bilateral MG 3D screening mammo w/cad, [facility]. Tissue Density: The breasts are heterogeneously dense, which may obscure small masses. Findings: Analyzed By CAD. There is no suspicious group of microcalcifications or new suspicious mass in either breast. Overall Assessment: Benign, BI-RAD 2 Management: Screening Mammogram of both breasts in 1 year. . Patient should continue monthly self-breast exams. A clinical breast exam by your physician is recommended on an annual basis. This exam should not preclude additional follow-up of suspicious palpable abnormalities. Note on Radha scores and lifetime risk: 1. A Radha score greater than 3% is considered moderate risk. If this is the case, consider specialist referral to assess eligibility for a risk reducing agent. 2. If overall lifetime risk for the development of breast cancer is 20% or higher, the patient may qualify for future screening with alternating mammogram and breast MRI. [facility], , 01/25/2025 8:19 AM. Electronically signed and approved by: Jorge Wright M.D. Radiologis
== END | disposition home or self-care (01) ==
LOC: RADMAMWWP 07:53
PROVIDERS: ATTEND Family Medicine
DX: Z12.31 Encounter for screening mammogram for malignant neoplasm of breast (principal); R92.333 Mammographic heterogeneous density, bilateral breasts
CPT/HCPCS: 77063; 77067

== ENCOUNTER → 2025-05-27 | Outpatient (CLI) | payer BC ==
--- NOTE | 2025-05-27 17:03 | CT ---
EXAMINATION TYPE: CT abdomen wo con CT DLP: 545 mGycm, Automated exposure control for dose reduction was used. DATE OF EXAM: 05/27/2025 4:51 PM COMPARISON: None CLINICAL INDICATION:Female, 40 years old with history of Z98.890 OTHER SPECIFIED POSTPROCEDURAL STATE S; RLQ abdominal pain after working out, hx of inguinal hernia repair TECHNIQUE: Standard CT of the abdomen following the administration of oral contrast. Coronal and sa gittal reformats were performed. Limited examination due to lack of intravenous contrast. FINDINGS: LOWER CHEST: No significant findings. ABDOMEN LIVER: Unremarkable noncontrast appearance GALLBLADDER AND BILE DUCTS: Unremarkable noncontrast appearance PANCREAS: Unremarkable noncontrast appearance SPLEEN: Unremarkable noncontrast appearance ADRENAL GLANDS: Unremarkable noncontrast appearance. KIDNEYS AND URETERS: No evidence of hydronephrosis. Nonobstructing right renal lower pole 4 mm calcul us. No left renal calculi. STOMACH AND BOWEL: Stomach and duodenum are unremarkable. Colonic diverticulosis without surrounding inflammatory changes or wall thickening. Surgical clip in the right lower quadrant. No bowel wall thi ckening or stranding inflammatory changes identified. No evidence of bowel obstruction. PERITONEUM: No evidence of pneumoperitoneum or free fluid. VASCULATURE: No evidence of aortic aneurysm. MUSCULOSKELETAL: No acute osseous abnormalities LYMPH NODES: No gross evidence for lymphadenopathy. SOFT TISSUE/ABDOMINAL WALL: Unremarkable IMPRESSION: 1. No CT evidence for acute abdominal process. 2. Colonic diverticulosis without evidence for acute diverticulitis. 3. Nonobstructing right renal calculus. [facility], , 05/27/2025 5:01 PM
== END | disposition home or self-care (01) ==
LOC: RADCTMAIN 16:01
PROVIDERS: ATTEND Family Medicine
DX: N20.0 Calculus of kidney (principal); K57.30 Diverticulosis of large intestine without perforation or abscess without bleeding; Z98.890 Other specified postprocedural states
CPT/HCPCS: 74150